=== PATIENT | female | born 1940 | race African-American/Black ===

== ENCOUNTER → 2017-02-10 | Outpatient (CLI) | payer OTHER | LOC: FIMAGING 10:39 | PROVIDERS: ATTEND Internal Medicine | DX: Z12.31 Encounter for screening mammogram for malignant neoplasm of breast (principal) | CPT/HCPCS: G0202 ==

== ENCOUNTER → 2018-01-02 | Outpatient (CLI) | payer OTHER | LOC: BMCIMAGING 10:55 | PROVIDERS: ATTEND Internal Medicine | DX: M54.6 Pain in thoracic spine (principal); R07.9 Chest pain, unspecified; I51.7 Cardiomegaly; R91.8 Other nonspecific abnormal finding of lung field ==

== ENCOUNTER → 2018-02-11 | Outpatient (CLI) | payer OTHER | LOC: FIMAGING 09:37 | PROVIDERS: ATTEND Internal Medicine | DX: Z12.31 Encounter for screening mammogram for malignant neoplasm of breast (principal) ==

== ENCOUNTER → 2018-02-16 | Outpatient (CLI) | payer OTHER | LOC: BHFA 09:00 | PROVIDERS: ATTEND Internal Medicine Cardiovascular Disease | DX: I47.1 Supraventricular tachycardia (principal) ==

== ENCOUNTER → 2018-03-16 | Outpatient (CLI) | payer OTHER | LOC: BHFA 09:30 | PROVIDERS: ATTEND Internal Medicine Cardiovascular Disease | DX: I48.91 Unspecified atrial fibrillation (principal); I48.92 Unspecified atrial flutter | CPT/HCPCS: 78452; 93017; A9500; J2785 ==

== ENCOUNTER → 2018-04-26 | Outpatient (CLI) | payer OTHER | LOC: FIMAGING 09:37 | PROVIDERS: ATTEND Internal Medicine | DX: Z13.820 Encounter for screening for osteoporosis (principal); M85.89 Other specified disorders of bone density and structure, multiple sites; Z78.0 Asymptomatic menopausal state ==

== ENCOUNTER 2018-10-31 13:50 | Inpatient (IN) | payer OTHER ==
[2018-10-31] MEDS ORDERED: methylPREDNISolone SOD SUCC 125 MG/2 ML VIAL IVP ONE (14:00)
[2018-10-31] MEDS ORDERED: IPRATROPIUM/ALBUTEROL 3 ML DEYVIAL IH ONE (14:00)
[2018-10-31] MEDS ORDERED: MAGNESIUM SULF 2 GM/WATER 50 ML IV ONE (14:00)
--- NOTE | 2018-10-31 14:04 | EDPHY ---
H & P Time Seen by Provider: 10/31/18 13:53 HPI/ROS: CHIEF COMPLAINT: Dyspnea HISTORY OF PRESENT ILLNESS: Patient is a 77-year-old female with a history of atrial fibrillation on Eliquis, asthma, COPD and fiber cirrhotic mediastinitis. She is followed by Dr. Luis Jane from pulmonology. She presented to the urgent care today complaining of shortness of breath since Tuesday. No fever. No chest pain. She was 80% on room air for them. She typically wears oxygen only at night. She was given a DuoNeb and felt much better and was saturating 92% on room air by the time EMS arrived. Is they transported her here and on arrival here she is saturating 76% on room air after ambulating to the bathroom. She states that her cough has been productive of grayish yellow sputum. She did get a flu vaccination this year. She denies any history of CHF. Severity: Severe Modifying factors: Improved with albuterol and oxygen REVIEW OF SYSTEMS: Constitutional: denies: chills, fever, recent illness, recent injury EENTM: denies: blurred vision, double vision, nose congestion Respiratory: See HPI Cardiac: denies: chest pain, irregular heart rate, lightheadedness, palpitations Gastrointestinal/Abdominal: denies: abdominal pain, diarrhea, nausea, vomiting, blood streaked stools Genitourinary: denies: dysuria, frequency, hematuria, pain Musculoskeletal: denies: joint pain, muscle pain Skin: denies: lesions, rash, jaundice, bruising Neurological: denies: headache, numbness, paresthesia, tingling, dizziness, weakness Hematologic/Lymphatic: denies: blood clots, easy bleeding, easy bruising Immunologic/allergic: denies: HIV/AIDS, transplant 10 systems reviewed and negative except as noted EXAM: GENERAL: Well-appearing, well-nourished and in no acute distress. HEAD: Atraumatic, normocephalic. EYES: Pupils equal round and reactive to light, extraocular movements intact, sclera anicteric, conjunctiva are normal. ENT: TMs normal, nares patent, oropharynx clear without exudates. Moist mucous membranes. NECK: Normal range of motion, supple without lymphadenopathy or JVD. LUNGS: Bilateral wheezing HEART: Regular rate and rhythm without murmurs, rubs or gallops. ABDOMEN: Soft, nontender, normoactive bowel sounds. No guarding, no rebound. No masses appreciated. BACK: No CVA tenderness, no spinal tenderness, step-offs or deformities EXTREMITIES: Normal range of motion, no pitting or edema. No clubbing or cyanosis. NEUROLOGICAL: Cranial nerves II through XII grossly intact. Normal speech, normal gait. 5/5 strength, normal movement in all extremities, normal sensation , normal reflexes PSYCH: Normal mood, normal affect. SKIN: Warm, dry, normal turgor, no visible rashes or lesions. Source: Patient Exam Limitations: No limitations - Medical/Surgical History Hx Asthma: Yes Hx Chronic Respiratory Disease: Yes Hx Diabetes: No Hx Cardiac Disease: Yes Hx Renal Disease: No Hx Cirrhosis: No Hx Alcoholism: No Hx HIV/AIDS: No Hx Splenectomy or Spleen Trauma: No - Family History Significant Family History: No pertinent family hx - Social History Smoking Status: Former smoker Alcohol Use: None Drug Use: None Constitutional: Initial Vital Signs Temperature (C) 36.8 C 10/31/18 13:57 Heart Rate 83 10/31/18 13:57 Respiratory Rate 20 10/31/18 13:57 Blood Pressure 128/58 H 10/31/18 13:57 O2 Sat (%) 99 10/31/18 13:57 O2 Delivery Mode Nasal Cannula O2 (L/minute) 2 Allergies/Adverse Reactions: No Known Allergies Allergy (Unverified 10/31/18 14:39) Home Medications: Medication Instructions Recorded Albuterol [Proventil Inhaler HFA 1 - 2 puffs IH Q4H PRN 10/31/18 (*)] Albuterol [Proventil Inhaler HFA 2 puffs IH BID 10/31/18 (*)] Apixaban [Eliquis] 5 mg PO BID 10/31/18 Atorvastatin Calcium [Lipitor 10 10 mg PO DAILY18 10/31/18 mg (*)] Chlorthalidone [Chlorthalidone 25 25 mg PO DAILY 10/31/18 mg (*)] Cholecalciferol Vit D3 [Vitamin D3 2,000 units PO DAILY18 10/31/18 2000 units tab (OTC)] Diltiazem HCl [DILTIAZEM ER] 180 mg PO HS 10/31/18 Fluticasone/Salmeter 500/50Mcg 1 puffs IH BID 10/31/18 [Advair 500/50 (*)] Ipratropium/Albuterol [Duoneb (*)] 3 ml IH QID PRN 10/31/18 Loratadine [Claritin 10 mg] 10 mg PO DAILY PRN 10/31/18 Losartan Potassium [Cozaar 50 mg 50 mg PO DAILY 10/31/18 (*)] Potassium Cl [Klor-Con] 20 meq PO BIDMEAL 10/31/18 Tiotropium Inhaler [Spiriva 18 mcg IH DAILY@13 10/31/18 Inhaler] Medical Decision Making - Diagnostics EKG Interpretation: An EKG obtained and was read and documented in trace view. Please see trace view for full reading and report. Sinus rhythm, artifact, no acute ischemic changes visible Imaging: Discussed imaging studies w/ call center analyst Radiologist ED Course/Re-evaluation: 2:40 p.m. Patient appears to have pneumonia on her chest x-ray. Will add antibiotics as well as fluid bolus for an elevated INR. Patient meets criteria for severe sepsis. 2:50 p.m. discussed the case with Dr. Michael who will admit to the medical service. Agrees with antibiotics. Differential Diagnosis: Partial list of the Differential diagnosis considered include but were not limited to; asthma exacerbation, bronchitis,, sepsis and although unlikely based on the history and physical exam, I also considered septic shock, PE, acute coronary disease, CHF. - Data Points Laboratory Results: Laboratory Results 10/31/18 14:15 10/31/18 14:15 Microbiology Results: MICROBIOLOGY 10/31/18 14:15 Nasal, Sinus - Swab Respiratory Panel (PCR) - Final No Organism Detected By Pcr Medications Given: Albuterol/Ipratropium (Duoneb) 3 ml IH QID PRN PRN Reason: Bronchitis/Asthma Stop: 04/29/19 21:03 Last Admin: 11/01/18 04:43 Dose: 3 ml Apixaban (Eliquis) 5 mg PO BID LEONARDO Stop: 04/29/19 21:29 Last Admin: 10/31/18 21:48 Dose: 5 mg Atorvastatin Calcium (Lipitor) 10 mg PO DAILY18 LEONARDO Stop: 04/29/19 21:29 Last Admin: 10/31/18 21:48 Dose: 10 mg Diltiazem HCl (Cardizem Er Q24hr) 180 mg PO HS LEONARDO Stop: 04/29/19 20:59 Last Admin: 10/31/18 23:10 Dose: 180 mg Sodium Chloride (Ns) 1,000 mls @ 50 mls/hr IV CONT LEONARDO Stop: 04/29/19 15:29 Last Admin: 10/31/18 23:32 Dose: 1,000 mls Methylprednisolone Sodium Succinate (Solu-Medrol) 60 mg IVP Q6HRS LEONARDO Stop: 04/29/19 17:59 Last Admin: 11/01/18 05:06 Dose: 60 mg Fluticasone/Salmeterol (Advair) 1 puffs IH BID LEONARDO Stop: 04/30/19 08:59 Last Admin: 10/31/18 22:04 Dose: 1 puffs Discontinued Medications Albuterol/Ipratropium (Duoneb) 3 ml IH EDNOW ONE Stop: 10/31/18 14:01 Last Admin: 10/31/18 14:22 Dose: 3 ml Magnesium Sulfate (Magnesium Sulf 2 Gm (Premix)) 50 mls @ 50 mls/hr IV EDNOW ONE Stop: 10/31/18 14:59 Last Admin: 10/31/18 14:27 Dose: 50 mls Ceftriaxone Sodium/Dextrose (Rocephin 1 Gm (Premix)) 50 mls @ 100 mls/hr IV EDNOW ONE PRN Reason: Protocol Stop: 10/31/18 15:03 Last Admin: 10/31/18 15:36 Dose: 50 mls Sodium Chloride (Ns) 2,100 mls @ 350 mls/hr 30 ml/kg infuse over 6 hr (2100 ml ) IV EDNOW ONE PRN Reason: Protocol Stop: 10/31/18 20:33 Last Admin: 10/31/18 14:43 Dose: 2,100 mls Azithromycin 500 mg/ Dextrose 255 mls @ 255 mls/hr IV EDNOW ONE PRN Reason: Protocol Stop: 10/31/18 15:36 Last Admin: 10/31/18 16:09 Dose: 255 mls Methylprednisolone Sodium Succinate (Solu-Medrol) 125 mg IVP EDNOW ONE Stop: 10/31/18 14:01 Last Admin: 10/31/18 14:23 Dose: 125 mg Departure - Departure Disposition: [facility] Acute Clinical Impression: Severe sepsis Pneumonia Qualifiers: Pneumonia type: due to unspecified organism Laterality: right Lung location: lower lobe of lung Qualified Code(s): J18.1 - Lobar pneumonia, unspecified organism Exacerbation of asthma Qualifiers: Asthma severity: moderate Asthma persistence: unspecified Qualified Code(s): J45.901 - Unspecified asthma with (acute) exacerbation Condition: Fair
[2018-10-31 14:23] LABS: PLATELET COUNT 246 10^3/uL (150-400)
[2018-10-31 14:34] LABS: INR 2.7 (0.83-1.16); PROTIME(PATIENT) 28.6 SEC (12.0-15.0)
[2018-10-31] MEDS ORDERED: NS 2,100 ML IV ONE (14:34)
[2018-10-31] MEDS ORDERED: AZITHROMYCIN IV 500 MG in D5W 250 ML IV ONE (14:37)
--- NOTE | 2018-10-31 14:55 | CPEKG ---
Test Reason : OPEN Blood Pressure : / mmHG Vent. Rate : 080 BPM Atrial Rate : 080 BPM P-R Int : 206 ms QRS Dur : 103 ms QT Int : 388 ms P-R-T Axes : 031 -08 060 degrees QTc Int : 448 ms Sinus rhythm Low voltage, precordial leads Confirmed by Jose Angel Mccabe ([id number]) on 10/31/2018 2:55:27 PM Referred By: Jose Angel Mccabe Confirmed By:Jose Angel Mccabe
--- NOTE | 2018-10-31 15:08 | PDGENHP ---
History and Physical - Chief Complaint Cough and shortness of breath - History of Present Illness Patient is a 77-year-old female with past medical history of AFib on Eliquis, asthma, chronic bronchitis, hypertension, hyperlipidemia who presented to the emergency room with acute worsening of shortness of breath and productive cough. She says at baseline she has a chronic cough that is productive of sputum but starting Tuesday night she started feeling worse with generalized malaise and worsening of her shortness of breath. Her cough became much more productive of green saha yellow sputum. At baseline she uses 2 L of oxygen at night and she has not had to turn that up. She has not had any fevers, chills, chest pain, nausea, vomiting. She has been using in her her inhalers but feels like she is still short of breath and they are not helping much. She denied any increased lower extremity edema, orthopnea or paroxysmal nocturnal dyspnea. History Information - Allergies/Home Medication List Allergies/Adverse Reactions: No Known Allergies Allergy (Unverified 10/31/18 14:39) I have personally reviewed and updated: family history, medical history, social history, surgical history - Past Medical History atrial fibrillation, asthma, COPD, hypertension, hyperlipidemia - Surgical History Reports: no pertinent surgical hx - Family History Positive for: non-pertinent - Social History Smoking Status: Former smoker Alcohol Use: None Drug Use: None Review of Systems Review of Systems: ROS: 10pt was reviewed & negative except for what was stated in HPI & below Physical Exam Physical Exam: Temp Pulse Resp BP Pulse Ox 36.8 C 83 20 128/58 H 99 10/31/18 13:57 10/31/18 13:57 10/31/18 13:57 10/31/18 13:57 10/31/18 13:57 Constitutional: no apparent distress, appears nourished, not in pain Eyes: PERRL, anicteric sclera, EOMI Ears, Nose, Mouth, Throat: moist mucous membranes, hearing normal, ears appear normal, no oral mucosal ulcers Cardiovascular: regular rate and rhythym, no murmur, rub, or gallop, No edema Respiratory: reduced air movement, expiratory wheeze Gastrointestinal: normoactive bowel sounds, soft, non-tender abdomen, no palpable masses Genitourinary: no bladder fullness, no bladder tenderness Skin: warm, normal color, no rashes or abrasions, no fluctuance, no induration, No mottled Musculoskeletal: full muscle strength, no muscle tenderness, normal joint ROM, no joint effusions Psychiatric: interacting appropriately, not anxious, not encephalopathic, thought process linear Lymph, Heme, Immunologic: no cervical LAD, no supraclavicular LAD Lab Data & Imaging Review 10/31/18 14:15 10/31/18 14:15 WBC 9.66 10^3/uL (3.80-9.50) H 10/31/18 14:15 RBC 3.84 10^6/uL (4.18-5.33) L 10/31/18 14:15 Hgb 12.9 g/dL (12.6-16.3) 10/31/18 14:15 Hct 38.8 % (38.0-47.0) 10/31/18 14:15 MCV 101.0 fL (81.5-99.8) H 10/31/18 14:15 MCH 33.6 pg (27.9-34.1) 10/31/18 14:15 MCHC 33.2 g/dL (32.4-36.7) 10/31/18 14:15 RDW 13.7 % (11.5-15.2) 10/31/18 14:15 Plt Count 246 10^3/uL (150-400) 10/31/18 14:15 MPV 9.2 fL (8.7-11.7) 10/31/18 14:15 Neut % (Auto) 81.5 % (39.3-74.2) H 10/31/18 14:15 Lymph % (Auto) 6.2 % (15.0-45.0) L 10/31/18 14:15 [place] % (Auto) 11.5 % (4.5-13.0) 10/31/18 14:15 Eos % (Auto) 0.3 % (0.6-7.6) L 10/31/18 14:15 Baso % (Auto) 0.2 % (0.3-1.7) L 10/31/18 14:15 Nucleat RBC Rel Count 0.0 % (0.0-0.2) 10/31/18 14:15 Absolute Neuts (auto) 7.87 10^3/uL (1.70-6.50) H 10/31/18 14:15 Absolute Lymphs (auto) 0.60 10^3/uL (1.00-3.00) L 10/31/18 14:15 Absolute Monos (auto) 1.11 10^3/uL (0.30-0.80) H 10/31/18 14:15 Absolute Eos (auto) 0.03 10^3/uL (0.03-0.40) 10/31/18 14:15 Absolute Basos (auto) 0.02 10^3/uL (0.02-0.10) 10/31/18 14:15 Absolute Nucleated RBC 0.00 10^3/uL (0-0.01) 10/31/18 14:15 Immature Gran % 0.3 % (0.0-1.1) 10/31/18 14:15 Immature Gran # 0.03 10^3/uL (0.00-0.10) 10/31/18 14:15 PT 28.6 SEC (12.0-15.0) H 10/31/18 14:15 INR 2.70 (0.83-1.16) H 10/31/18 14:15 APTT 48.1 SEC (23.0-38.0) H 10/31/18 14:15 VBG Lactic Acid 0.8 mmol/L (0.7-2.1) 10/31/18 14:42 Sodium 137 mEq/L (135-145) 10/31/18 14:15 Potassium 3.6 mEq/L (3.5-5.2) 10/31/18 14:15 Chloride 101 mEq/L (97-110) 10/31/18 14:15 Carbon Dioxide 25 mEq/l (22-31) 10/31/18 14:15 Anion Gap 11 mEq/L (6-14) 10/31/18 14:15 BUN 14 mg/dL (7-23) 10/31/18 14:15 Creatinine 0.9 mg/dL (0.6-1.0) 10/31/18 14:15 Estimated GFR 60 10/31/18 14:15 Glucose 98 mg/dL (70-100) 10/31/18 14:15 Calcium 9.5 mg/dL (8.5-10.4) 10/31/18 14:15 Total Bilirubin 1.3 mg/dL (0.1-1.4) 10/31/18 14:15 Assessment & Plan Assessment: 77-year-old female with past medical history of asthma, AFib, hypertension, hyperlipidemia admitted with acute on chronic hypoxemic respiratory failure and likely community-acquired pneumonia with asthma/ COPD exacerbation Exacerbation of asthma- patient has very poor air movement increased oxygen requirement and substantial expiratory wheezes on exam. She likely has a COPD exacerbation in the setting of bacterial pneumonia. Discussed the case with the emergency room physician the patient is being and steroids and antibiotics. -continue Solu-Medrol 60 q.6 for now -continue home inhalers including Dulera -treat bacterial pneumonia -oxygen,, duo nebs p.r.n. Pneumonia- she has a leukocytosis with left shift, and chest x-ray with findings concerning for a new right lower lobe pneumonia. No evidence to suggest aspiration. She has been given coverage in the emergency room for community-acquired pneumonia with Rocephin and Zithromax. -continue Rocephin and Zithromax -strep pneumo urinary antigen -Legionella urinary antigen -monitor cultures Atrial fibrillation- on Eliquis and diltiazem. I reviewed the EKG today which shows that she is in a sinus rhythm. No evidence of ischemia. -continue Eliquis -continue diltiazem -monitor on telemetry Hypertension- on diltiazem, losartan, hydrochlorothiazide,, chlorthalidone. Once dose is confirmed will restart these medications. Hyperlipidemia- continue Lipitor Prophylaxis- SCDs, Eliquis Fluids-gentle fluids Electrolytes-within normal limits Nutrition-regular diet Cor-DNR Dispo-observation for acute on chronic hypoxemic respiratory failure, community- acquired pneumonia, asthma/COPD exacerbation
[2018-10-31] MEDS ORDERED: ONDANSETRON DISINTEGRATING 4 MG TAB PO PRN (15:19)
[2018-10-31] MEDS ORDERED: ONDANSETRON 4 MG/2 ML VIAL IVP PRN (15:19)
[2018-10-31] MEDS ORDERED: NS 1,000 ML IV SCH (15:30)
[2018-10-31] MEDS: methylPREDNISolone SOD SUCC 125 MG/2 ML VIAL IVP SCH ×2 (18:12→23:11)
[2018-10-31] MEDS: ATORVASTATIN CALCIUM 10 MG TAB PO SCH (21:48)
[2018-10-31] MEDS: APIXABAN 5 MG TAB PO SCH (21:48)
[2018-10-31] MEDS: IPRATROPIUM/ALBUTEROL 3 ML DEYVIAL IH PRN (22:00)
[2018-10-31] MEDS: FLUTICASONE/SALMETER 500/50MCG DISKUS IH SCH (22:04)
[2018-10-31] MEDS: DILTIAZEM CD 180 MG CAP PO SCH (23:10)
[2018-11-01] MEDS: IPRATROPIUM/ALBUTEROL 3 ML DEYVIAL IH PRN (04:43)
[2018-11-01] MEDS: methylPREDNISolone SOD SUCC 125 MG/2 ML VIAL IVP SCH ×4 (05:06→23:07)
[2018-11-01 05:20] LABS: PLATELET COUNT 247 10^3/uL (150-400)
[2018-11-01] MEDS ORDERED: POTASSIUM CL 20 MEQ TAB PO ONE (06:32)
[2018-11-01] MEDS: LOSARTAN POTASSIUM 50 MG TAB PO SCH (08:46)
[2018-11-01] MEDS: AZITHROMYCIN IV 500 MG in NS 250 ML IV SCH (08:47)
[2018-11-01] MEDS: APIXABAN 5 MG TAB PO SCH ×2 (08:47→20:15)
[2018-11-01] MEDS ORDERED: IPRATROPIUM BROMIDE 0.5 MG/2.5 ML DEYVIAL IH PRN (09:25)
[2018-11-01] MEDS: IPRATROPIUM/ALBUTEROL 3 ML DEYVIAL IH SCH ×4 (10:26→20:25)
[2018-11-01] MEDS: FLUTICASONE/SALMETER 500/50MCG DISKUS IH SCH ×2 (10:26→20:27)
--- NOTE | 2018-11-01 11:34 | ASMTCMCOM ---
CM Note CM Note Notes: Pts case discussed w/ Dr. Abarca. Pt is a 77 y/o female admitted for pneumonia and asthma exacerbation. Therapies have been ordered and awaiting recommendations. Needs are TBD at this time. CM to follow. Plan:TBD Date Signed: 11/01/2018 11:33 AM Electronically Signed By:FLAKO Heaton
[2018-11-01] MEDS: TIOTROPIUM INHALER 18 MCG/DOSE 5 DOSE/MDI IH SCH (13:49)
--- NOTE | 2018-11-01 14:09 | HOSPPROG ---
Hospitalist Progress Note Assessment/Plan: 77-year-old female with past medical history of asthma, AFib, hypertension, hyperlipidemia admitted with acute on chronic hypoxemic respiratory failure and likely community-acquired pneumonia with asthma/ COPD exacerbation Exacerbation of asthma/COPD- patient has very poor air movement increased oxygen requirement and substantial expiratory wheezes on exam. She likely has a COPD exacerbation in the setting of bacterial pneumonia. -continue Solu-Medrol 60 q6 hrs for now, s/p 125 mg IVP in ED -continue home inhalers including Dulera -treat bacterial pneumonia -oxygen,, duo nebs scheduled and prn Pneumonia- she has a leukocytosis with left shift, and chest x-ray with findings concerning for a new right lower lobe pneumonia. No evidence to suggest aspiration. -continue Rocephin and Zithromax (Day 2) -strep pneumo urinary antigen and Legionella urinary antigen pending -monitor blood cultures- NGTD -Resp PCR negative o admission Atrial fibrillation- on Eliquis and diltiazem. I reviewed the EKG today which shows that she is in a sinus rhythm. No evidence of ischemia. -continue home Eliquis -continue home diltiazem -monitor on telemetry Hypertension- on diltiazem, losartan, hydrochlorothiazide,, chlorthalidone. Hyperlipidemia- continue Lipitor Prophylaxis- SCDs, Eliquis Fluids-gentle fluids Electrolytes-within normal limits Nutrition-regular diet Cor-DNR Dispo-Pending clinical course Subjective: Patient reports mildly improved SOB this AM Objective: Vital Signs Temp Pulse Resp BP Pulse Ox 36.4 C 83 16 123/49 H 96 11/01/18 11:42 11/01/18 13:51 11/01/18 13:51 11/01/18 11:42 11/01/18 13:51 Laboratory Results 11/01/18 04:53 11/01/18 04:53 10/31/18 11/01/18 11/02/18 05:59 05:59 05:59 Intake Total 3100 Output Total 1250 Balance 1850 PT 28.6 SEC (12.0-15.0) H 10/31/18 14:15 INR 2.70 (0.83-1.16) H 10/31/18 14:15 - Physical Exam Constitutional: no apparent distress Eyes: PERRL Ears, Nose, Mouth, Throat: moist mucous membranes Cardiovascular: irregularly irregular Respiratory: no respiratory distress, expiratory wheeze Gastrointestinal: soft, non-tender abdomen Skin: warm Musculoskeletal: full muscle strength Neurologic: AAOx3 Psychiatric: interacting appropriately ICD10 Worksheet Patient Problems: Problems Problem Status Onset Exacerbation of asthma Acute Pneumonia Acute Severe sepsis Acute
--- NOTE | 2018-11-01 15:48 | PDMN ---
Medical Necessity Medical necessity: Change to inpt as of 11/01/18 @ 14:11, pt meets inpt criteria per MD order and MCG M-282, Pneumonia, A-2 days. 77 y/o w/PMH of asthma, afib, HTN, and HLD admitted w/acute on chronic hypoxemic resp failure and likely comm acquired PNA w/asthma/COPD exacerbation. Upgraded to inpt for further med nec treatment of PNA including IVF, IV ABX's, IV Solu-Medrol, duo nebs, pt still requiring 2 L O2 during ay (her baseline is 2 L at night). Est LOS>2MN for ongoing management of above.
[2018-11-01] MEDS: ATORVASTATIN CALCIUM 10 MG TAB PO SCH (17:15)
[2018-11-01] MEDS: CANN-EASE 2 GM TUBE TP PRN ×2 (17:58→23:07)
[2018-11-01] MEDS: DILTIAZEM CD 180 MG CAP PO SCH (20:15)
[2018-11-01] MEDS ORDERED: MELATONIN 3 MG TAB PO PRN (22:26)
[2018-11-02] MEDS ORDERED: GUAIFENESIN/DM 10 ML UDCUP PO PRN (00:28)
[2018-11-02] MEDS: BENZONATATE 100 MG CAP PO PRN ×2 (00:50→10:16)
[2018-11-02] MEDS: ALBUTEROL 3 ML DEYVIAL IH PRN (01:13)
[2018-11-02] MEDS ORDERED: LORazepam 0.5 MG TAB PO ONE (03:11)
[2018-11-02] MEDS: IPRATROPIUM/ALBUTEROL 3 ML DEYVIAL IH SCH ×4 (04:10→20:20)
[2018-11-02 05:01] LABS: PLATELET COUNT 288 10^3/uL (150-400)
[2018-11-02] MEDS: methylPREDNISolone SOD SUCC 125 MG/2 ML VIAL IVP SCH ×4 (05:06→23:51)
[2018-11-02] MEDS: guaiFENesin 600 MG TAB.ER PO PRN (05:11)
[2018-11-02] MEDS ORDERED: POTASSIUM CL 20 MEQ TAB PO ONE (05:35)
[2018-11-02] MEDS ORDERED: FUROSEMIDE 20 MG/2 ML VIAL IVP ONE (06:27)
[2018-11-02] MEDS ORDERED: PROTOCOL POTASSIUM 1 DOSE MISC PRN (08:16)
[2018-11-02] MEDS: APIXABAN 5 MG TAB PO SCH ×2 (08:34→20:00)
[2018-11-02] MEDS: LOSARTAN POTASSIUM 50 MG TAB PO SCH (08:34)
[2018-11-02] MEDS: FUROSEMIDE 20 MG/2 ML VIAL IVP SCH ×2 (08:34→14:58)
[2018-11-02] MEDS: AZITHROMYCIN IV 500 MG in NS 250 ML IV SCH (08:34)
--- NOTE | 2018-11-02 09:28 | HOSPPROG ---
Hospitalist Progress Note Assessment/Plan: # acute hypoxic resp failure - multifactorial, possible CHF, pna, COPD exacerbation # pneumonia - psa noted in urine last year - change to cefepime/azith given her tenuous resp status # COPD with acute exacerbation - con solu-medrol, BDs # possible CHF - there certainly may be a component of fluid overload ( cardiomegaly on CXR) - check echo - cont lasix 20 iv bid # paroxysmal a-fib - dilt, eliquis # HLD - lipitor # htn - dilt, cozaar (holding home chlorthalidone while on lasix) Subjective: More short of breath overnight, received Lasix; sitting on commode; dyspnea with minimal exertion; urinating a lot Objective: Vital Signs Temp Pulse Resp BP Pulse Ox 36.6 C 92 18 137/68 H 97 11/02/18 05:19 11/02/18 05:19 11/02/18 05:19 11/02/18 08:34 11/02/18 05:19 Laboratory Results 11/02/18 04:44 11/02/18 04:44 11/01/18 11/02/18 11/03/18 05:59 05:59 05:59 Intake Total 1445 Output Total 1325 Balance 120 PT 28.6 SEC (12.0-15.0) H 10/31/18 14:15 INR 2.70 (0.83-1.16) H 10/31/18 14:15 chart reviewed CXR personally reviewed - Physical Exam Constitutional: uncomfortable Cardiovascular: regular rate and rhythym, no murmur, rub, or gallop Respiratory: expiratory wheeze, inspiratory crackles, respiratory distress (mod) , rhonchi Gastrointestinal: normoactive bowel sounds, soft, non-tender abdomen, no palpable masses ICD10 Worksheet Patient Problems: Problems Problem Status Onset Pneumonia Acute Exacerbation of asthma Acute Severe sepsis Acute
[2018-11-02] MEDS: CEFEPIME HCL 2 GM in NS 100 ML IV SCH ×3 (09:49→23:51)
--- NOTE | 2018-11-02 10:32 | ECHO ---
[email or web address] [address] [address] Main: [phone] Fax: Transthoracic Echocardiogram Name: RENE PATEL MR#: [id number] Study Date: 11/02/2018 Study Time: 08:49 AM Date of : 1940 Age: 77 year(s) Height: 160 cm (63 in.) Weight: 74.39 kg (164 lb.) BSA: 1.78 m2 Gender: Female Examination: Echo Indication: CHF? Image Quality: Adequate Contrast: Requested by: Anthony Ayala BP: 137 mmHg/68 mmHg Heart Rate: Rhythm: Indication: CHF? Procedure Staff Sailmaker: Mansi Vivar [facility] Reading Physician: Belgica Escalera MD Requesting Provider: Conclusions: Normal size left ventricle. Mild concentric LV hypertrophy. Normal global systolic LV function. EF is 67 %. No regional wall motion abnormality. Normal diastolic LV function. Normal size right ventricle. Normal RV function. The left atrium is normal in size. Mild to moderate mitral regurgitation. Mild tricuspid regurgitation is present. Right ventricular systolic pressure measures 70mmHg. Mildly dilated ascending aorta measuring 3.8 cm. Trivial pericardial effusion. Compared with 03/28/2018 RVSP is higher (previously 57 mmHg). Measurements: Chambers Valvular Assessment AV/MV Valvular Assessment TV/PV Normal Normal Normal Name Value Range Name Value Range Name Value Range Ao Areli (2D): 3.3 cm (1.4 cm-2.6 AV Vmax: 1.50 m/s (1 m/s-1.7 TR Vmax: 4.02 mm/s ( - ) cm) m/s) TR PGmax: 65 mmHg ( - ) IVSd (2D): 1.1 cm (0.6 cm-1.1 AV maxP mmHg ( - ) syst. PAP: 70 mmHg ( - ) cm) AV meanP mmHg ( - ) PV Vmax: 0.80 m/s (0.6 m/s-0.9 LVDd (2D): 5.0 cm (3.9 cm-5.3 RYAN (VTI): 2.6 cm ( - ) m/s) cm) MV E Vmax: 1.16 m/s ( - ) PV PGmax: 3 mmHg ( - ) LVDs (2D): 3.4 cm (2.1 cm-4 MV A Vmax: 0.98 m/s ( - ) cm) MV E/A: 1.18 ( - ) LVPWd (2D): 1.0 cm ( - ) MV PHT: 0.058 s ( - ) LVOTd 2.0 cm 2.0 cm mm MVA (PHT): 3.8 s ( - ) Patient: RENE PATEL Study Date: 11/02/2018 Page 1 of 2 08:49 AM LVEF (BP): 67 % (>=55 %) RVDd(2D): 3.0 cm (1.9 cm-3.8 cmmm) Continued Measurements: Chambers Valvular Assessment AV/MV Valvular Assessment TV/PV Name Value Name Value Name Value LADs: 3.6 cm MV DecTime: 194 m/s CVP (est.): 5 mmHg LADs Lon.4 cm MV E' Septal: 0.12 m/s LA Area: 17.9 cm2 MV E/E' Septal: 9.70 LA Volume: 59 ml MV E/E' Lateral: 10.90 LA Volume Index: 33.1 ml/m2 RA Area: 16.3 cm2 Additional Vessels Name Value Ao Ascendin.8 cm Findings: Left Ventricle: Normal size left ventricle. Mild concentric LV hypertrophy. Normal global systolic LV function. EF is 67 %. No regional wall motion abnormality. Normal diastolic LV function. Right Ventricle: Normal size right ventricle. Normal RV function. Left Atrium: The left atrium is normal in size. Right Atrium: The right atrium is normal in size. Mitral Valve: The mitral valve is normal in appearance and function. Mild to moderate mitral regurgitation. No mitral stenosis is present. Aortic Valve: The aortic valve is tri-leaflet. There is no aortic valve regurgitation. No aortic valve stenosis is present. Tricuspid Valve: The tricuspid valve is normal in appearance and function. Mild tricuspid regurgitation is present. The pulmonary artery pressure is severely increased. Right ventricular systolic pressure measures 70mmHg. Pulmonic Valve: The pulmonic valve is normal in appearance and function. Aorta: The aorta is normal. Normal size aortic root measuring 3.3 cm. Mildly dilated ascending aorta measuring 3.8 cm. Pericardium: Trivial pericardial effusion. There is pericardial fat. Exam Comments: (No Signature Object) Patient: RENE PATEL Study Date: 11/02/2018 Page 2 of 2 08:49 AM [id number]
[2018-11-02] MEDS: FLUTICASONE/SALMETER 500/50MCG DISKUS IH SCH ×2 (11:08→20:20)
--- NOTE | 2018-11-02 12:28 | ASMTCMCOM ---
CM Note CM Note Notes: Pts case discussed w/ Casandra Cespedes NP. Therapies are recommending HC. CM met w/ pt for dispo planning. She is agreeable to having [facility] services. Referral sent and they are able to accept. CM confirmed pts address and phone number. Pts PCP is Dr. Kerr. Pt is requesting Meals On Wheels set up for 5 days. CM will assist in doing that once a d/c date is identified. Pt does not have any food restrictions. CM to follow. Plan: [facility], PT, OT Date Signed: 11/02/2018 12:27 PM Electronically Signed By:FLAKO Heaton
[2018-11-02] MEDS: TIOTROPIUM INHALER 18 MCG/DOSE 5 DOSE/MDI IH SCH (13:59)
[2018-11-02] MEDS: ATORVASTATIN CALCIUM 10 MG TAB PO SCH (17:06)
[2018-11-02] MEDS ORDERED: POTASSIUM CL 10 MEQ TAB PO ONE (19:23)
[2018-11-02] MEDS: POTASSIUM CL 20 MEQ/15 ML UDCUP PO ONE ×2 (20:01→20:34)
[2018-11-02] MEDS: DILTIAZEM CD 180 MG CAP PO SCH (20:01)
[2018-11-02] MEDS: MELATONIN 3 MG TAB PO PRN (20:39)
[2018-11-03] MEDS: LORazepam 0.5 MG TAB PO PRN (01:14)
[2018-11-03] MEDS: guaiFENesin 600 MG TAB.ER PO PRN (01:17)
[2018-11-03] MEDS: ALBUTEROL 3 ML DEYVIAL IH PRN (01:49)
[2018-11-03] MEDS: methylPREDNISolone SOD SUCC 125 MG/2 ML VIAL IVP SCH ×4 (05:43→23:55)
[2018-11-03] MEDS: IPRATROPIUM/ALBUTEROL 3 ML DEYVIAL IH SCH ×4 (05:52→21:19)
[2018-11-03] MEDS: FLUTICASONE/SALMETER 500/50MCG DISKUS IH SCH ×2 (05:53→21:24)
[2018-11-03] MEDS: CEFEPIME HCL 2 GM in NS 100 ML IV SCH ×3 (08:07→23:55)
[2018-11-03] MEDS ORDERED: POTASSIUM CL 10 MEQ TAB PO ONE ×2 (09:00→21:00)
[2018-11-03] MEDS: AZITHROMYCIN IV 500 MG in NS 250 ML IV SCH (09:00)
[2018-11-03] MEDS: FUROSEMIDE 20 MG/2 ML VIAL IVP SCH ×2 (09:03→14:51)
[2018-11-03] MEDS: LOSARTAN POTASSIUM 50 MG TAB PO SCH (09:11)
[2018-11-03] MEDS: APIXABAN 5 MG TAB PO SCH ×2 (09:12→21:00)
[2018-11-03] MEDS: TIOTROPIUM INHALER 18 MCG/DOSE 5 DOSE/MDI IH SCH (13:15)
--- NOTE | 2018-11-03 13:18 | HOSPPROG ---
Hospitalist Progress Note Assessment/Plan: # acute hypoxic resp failure - baseline 2L at night - multifactorial, possible CHF, pna, COPD exacerbation # pneumonia - psa noted in urine last year - change to cefepime given her tenuous resp status - dc azith today # COPD with acute exacerbation - con solu-medrol, BDs - increase mucinex; add flutter valve # possible CHF - there certainly may be a component of fluid overload; echo ok - cont lasix 20 iv bid # paroxysmal a-fib - dilt, eliquis # HLD - lipitor # htn - dilt, cozaar (holding home chlorthalidone while on lasix) Subjective: feels slightly less SOB today; unable to fully clear mucous Objective: Vital Signs Temp Pulse Resp BP Pulse Ox 36.4 C 87 20 134/71 H 94 11/03/18 12:11 11/03/18 12:00 11/03/18 12:00 11/03/18 12:00 11/03/18 12:00 Laboratory Results 11/02/18 04:44 11/03/18 04:45 11/02/18 11/03/18 11/04/18 05:59 05:59 05:59 Intake Total 1445 350 Output Total 1325 3000 300 Balance 120 -2650 -300 PT 28.6 SEC (12.0-15.0) H 10/31/18 14:15 INR 2.70 (0.83-1.16) H 10/31/18 14:15 CXR personally reviewed - Physical Exam Constitutional: uncomfortable Cardiovascular: regular rate and rhythym, no murmur, rub, or gallop Respiratory: respiratory distress (mild), other (diffuse whonchi and wheezes), No bronchial breath sounds Gastrointestinal: soft, non-tender abdomen, no palpable masses, No guarding, No rebound ICD10 Worksheet Patient Problems: Problems Problem Status Onset Pneumonia Acute Exacerbation of asthma Acute Severe sepsis Acute
--- NOTE | 2018-11-03 16:30 | ASMTCMCOM ---
CM Note CM Note Notes: CM spoke to Dr. Ayala about this case. Pt will most likely be here for another day or two. CM arranged for pt to start receiving [employer] Whe[employer] on Tuesday. That was the soonest availability they had. CM updated [facility]. CM to follow. Plan: [facility]; PT, OT Date Signed: 11/03/2018 04:30 PM Electronically Signed By:FLAKO Heaton
[2018-11-03] MEDS: ATORVASTATIN CALCIUM 10 MG TAB PO SCH (17:14)
[2018-11-03] MEDS: guaiFENesin 600 MG TAB.ER PO SCH (21:00)
[2018-11-03] MEDS: DILTIAZEM CD 180 MG CAP PO SCH (21:00)
[2018-11-04] MEDS: ALBUTEROL 3 ML DEYVIAL IH PRN ×2 (00:50→09:50)
[2018-11-04] MEDS: LORazepam 0.5 MG TAB PO PRN (01:06)
[2018-11-04] MEDS: IPRATROPIUM/ALBUTEROL 3 ML DEYVIAL IH SCH ×4 (04:52→21:16)
[2018-11-04] MEDS: methylPREDNISolone SOD SUCC 125 MG/2 ML VIAL IVP SCH ×3 (04:57→17:18)
[2018-11-04 05:22] LABS: PLATELET COUNT 265 10^3/uL (150-400)
[2018-11-04] MEDS: CEFEPIME HCL 2 GM in NS 100 ML IV SCH ×3 (08:02→16:04)
[2018-11-04] MEDS: guaiFENesin 600 MG TAB.ER PO SCH ×2 (08:52→20:04)
[2018-11-04] MEDS: APIXABAN 5 MG TAB PO SCH ×2 (08:53→20:04)
[2018-11-04] MEDS: LOSARTAN POTASSIUM 50 MG TAB PO SCH (08:53)
[2018-11-04] MEDS: FLUTICASONE/SALMETER 500/50MCG DISKUS IH SCH ×2 (10:03→21:16)
[2018-11-04] MEDS ORDERED: POTASSIUM CL 10 MEQ TAB PO ONE ×2 (10:34→19:27)
[2018-11-04] MEDS: TIOTROPIUM INHALER 18 MCG/DOSE 5 DOSE/MDI IH SCH (11:52)
[2018-11-04] MEDS ORDERED: LORazepam 0.5 MG TAB PO PRN (13:56)
--- NOTE | 2018-11-04 14:03 | HOSPPROG ---
Hospitalist Progress Note Assessment/Plan: # acute hypoxic resp failure - baseline 2L at night; anticoagulated at baseline - multifactorial, possible CHF, pna, COPD exacerbation - check CT today for better characterization of pulm process # pneumonia - psa noted in urine last year -cont cefepime - s/p course of azith # COPD with acute exacerbation - con solu-medrol, BDs - increase mucinex; add flutter valve # possible CHF - there certainly may be a component of fluid overload; echo ok - will hold lasix today # hypoNa - suspect SIADH - check ulytes - fluid restrict # paroxysmal a-fib - dilt, eliquis # HLD - lipitor # htn - dilt, cozaar (holding home chlorthalidone while on lasix) # COR - DNR Subjective: still does not feel well; still SOB; difficulty clearing mucous Objective: Vital Signs Temp Pulse Resp BP Pulse Ox 36.3 C 83 18 134/81 H 92 11/04/18 13:15 11/04/18 13:15 11/04/18 13:15 11/04/18 13:15 11/04/18 13:15 Laboratory Results 11/04/18 04:42 11/04/18 04:42 11/03/18 11/04/18 11/05/18 05:59 05:59 05:59 Intake Total 350 525 Output Total 3000 1500 Balance -2650 -975 PT 28.6 SEC (12.0-15.0) H 10/31/18 14:15 INR 2.70 (0.83-1.16) H 10/31/18 14:15 high risk with ongoing resp compromise - Physical Exam Constitutional: uncomfortable, other (tired) Cardiovascular: regular rate and rhythym, no murmur, rub, or gallop Respiratory: expiratory wheeze, inspiratory crackles, respiratory distress (mild ), rhonchi Gastrointestinal: normoactive bowel sounds, soft, non-tender abdomen, no palpable masses ICD10 Worksheet Patient Problems: Problems Problem Status Onset Pneumonia Acute Exacerbation of asthma Acute Severe sepsis Acute
[2018-11-04] MEDS: ATORVASTATIN CALCIUM 10 MG TAB PO SCH (17:18)
[2018-11-04] MEDS ORDERED: IOPAMIDOL (ISOVUE-300) 100 ML BTL ONE (18:18)
[2018-11-04] MEDS: BENZONATATE 100 MG CAP PO PRN (18:28)
[2018-11-04] MEDS: ACETAMINOPHEN 325 MG TAB PO PRN (18:28)
[2018-11-04] MEDS: DILTIAZEM CD 180 MG CAP PO SCH (20:04)
[2018-11-05] MEDS: methylPREDNISolone SOD SUCC 125 MG/2 ML VIAL IVP SCH ×4 (00:27→21:54)
[2018-11-05] MEDS: BENZONATATE 100 MG CAP PO PRN ×2 (00:30→10:23)
[2018-11-05 04:59] LABS: PLATELET COUNT 287 10^3/uL (150-400)
[2018-11-05] MEDS ORDERED: NS 1,000 ML IV SCH (05:30)
[2018-11-05] MEDS: IPRATROPIUM/ALBUTEROL 3 ML DEYVIAL IH SCH ×4 (06:15→21:23)
[2018-11-05] MEDS: CEFEPIME HCL 2 GM in NS 100 ML IV SCH ×2 (06:31→16:04)
[2018-11-05] MEDS ORDERED: POTASSIUM CL 10 MEQ TAB PO ONE ×2 (07:46→22:49)
[2018-11-05] MEDS: guaiFENesin 600 MG TAB.ER PO SCH ×2 (09:23→21:53)
[2018-11-05] MEDS: LOSARTAN POTASSIUM 50 MG TAB PO SCH (09:23)
[2018-11-05] MEDS: APIXABAN 5 MG TAB PO SCH ×2 (09:23→21:53)
[2018-11-05] MEDS: FLUTICASONE/SALMETER 500/50MCG DISKUS IH SCH ×2 (09:46→21:24)
[2018-11-05] MEDS: ALBUTEROL 3 ML DEYVIAL IH PRN (09:46)
[2018-11-05] MEDS: TIOTROPIUM INHALER 18 MCG/DOSE 5 DOSE/MDI IH SCH (12:06)
[2018-11-05] MEDS: ACETAMINOPHEN 325 MG TAB PO PRN (12:23)
[2018-11-05] MEDS: traMADol 50 MG TAB PO PRN ×2 (14:16→21:56)
--- NOTE | 2018-11-05 14:26 | HOSPPROG ---
Hospitalist Progress Note Assessment/Plan: # acute hypoxic resp failure - baseline 2L at night; anticoagulated at baseline - multifactorial, possible CHF, pna, COPD exacerbation # pneumonia, diffuse and R sided - psa noted in urine last year - - with possible pseudomonas will continue cefepime - s/p course of azith - check legionella ag - check swallow study - will add tramadol to try to allow her to expectorate her sputum better # COPD with acute exacerbation - cont solu-medrol (decrease dose today), BDs - cont mucinex, flutter valve # possible CHF - doubt at this point # hypoNa - ULytes c/w hypovolemia - NS bolus; stop fluid restriction # paroxysmal a-fib - dilt, eliquis # HLD - lipitor # htn - dilt, cozaar (holding home chlorthalidone while on lasix) # COR - DNR Subjective: overall feels better today; still not able to cough up sputum Objective: Vital Signs Temp Pulse Resp BP Pulse Ox 36.4 C 88 16 139/73 H 93 11/05/18 11:54 11/05/18 12:06 11/05/18 12:06 11/05/18 11:54 11/05/18 12:06 Laboratory Results 11/05/18 04:20 11/05/18 04:20 11/04/18 11/05/18 11/06/18 05:59 05:59 05:59 Intake Total 525 1900 Output Total 1500 1600 200 Balance -975 300 -200 PT 28.6 SEC (12.0-15.0) H 10/31/18 14:15 INR 2.70 (0.83-1.16) H 10/31/18 14:15 CT personally reviewed discussed with dr burch - Physical Exam Constitutional: uncomfortable Cardiovascular: regular rate and rhythym, no murmur, rub, or gallop Respiratory: no respiratory distress, other (R sided rhonchi and rales; fewer wheezes than yesterday) ICD10 Worksheet Patient Problems: Problems Problem Status Onset Pneumonia Acute Exacerbation of asthma Acute Severe sepsis Acute
[2018-11-05] MEDS: CANN-EASE 2 GM TUBE TP PRN (14:29)
[2018-11-05] MEDS: ATORVASTATIN CALCIUM 10 MG TAB PO SCH (17:59)
[2018-11-05] MEDS: ACETAMINOPHEN 500 MG TAB PO SCH (21:52)
[2018-11-05] MEDS: DILTIAZEM CD 180 MG CAP PO SCH (21:53)
[2018-11-06] MEDS: ACETAMINOPHEN 500 MG TAB PO SCH ×3 (05:05→21:39)
[2018-11-06] MEDS: methylPREDNISolone SOD SUCC 125 MG/2 ML VIAL IVP SCH ×3 (05:06→21:39)
[2018-11-06] MEDS: CEFEPIME HCL 2 GM in NS 100 ML IV SCH ×2 (05:06→17:13)
[2018-11-06] MEDS: IPRATROPIUM/ALBUTEROL 3 ML DEYVIAL IH SCH ×4 (05:19→21:49)
[2018-11-06 05:24] LABS: PLATELET COUNT 281 10^3/uL (150-400)
[2018-11-06] MEDS: APIXABAN 5 MG TAB PO SCH ×2 (08:26→21:39)
[2018-11-06] MEDS: guaiFENesin 600 MG TAB.ER PO SCH ×2 (08:26→21:39)
[2018-11-06] MEDS: LOSARTAN POTASSIUM 50 MG TAB PO SCH (08:26)
[2018-11-06] MEDS ORDERED: POTASSIUM CL 10 MEQ TAB PO ONE ×2 (08:47→21:17)
[2018-11-06] MEDS: FLUTICASONE/SALMETER 500/50MCG DISKUS IH SCH ×2 (11:12→21:49)
[2018-11-06] MEDS: TIOTROPIUM INHALER 18 MCG/DOSE 5 DOSE/MDI IH SCH ×2 (11:13→16:28)
--- NOTE | 2018-11-06 15:11 | ASMTCMCOM ---
CM Note CM Note Notes: Pts case discussed w/ Dr. Ayala and Marlin RN. Pt is not medically stable to d/c at this time. CM left a msg for [employer] to reschedule delivery to start on . CM to follow. Plan: [facility]; PT, OT w/ 5 free [employer] Date Signed: 11/06/2018 03:10 PM Electronically Signed By:FLAKO Heaton
--- NOTE | 2018-11-06 15:44 | HOSPPROG ---
Hospitalist Progress Note Assessment/Plan: # acute hypoxic resp failure - baseline 2L at night; anticoagulated at baseline - slow improvement - multifactorial, possible CHF, pna, COPD exacerbation # pneumonia, diffuse and R sided - improving - psa noted in urine last year - with possible pseudomonas will continue cefepime - s/p course of azith - check swallow study - will add tramadol to try to allow her to expectorate her sputum better # COPD with acute exacerbation - cont solu-medrol (decrease dose yesterday), BDs - cont mucinex, flutter valve # possible CHF - doubt at this point # hypoNa - ULytes c/w hypovolemia - better after NS yesterday; follow allowing her to hydrate herself # paroxysmal a-fib - dilt, eliquis # HLD - lipitor # htn - dilt, cozaar (holding home chlorthalidone while on lasix) # COR - DNR Subjective: still about the same - SOB and energy improving Objective: Vital Signs Temp Pulse Resp BP Pulse Ox 36.3 C 96 18 127/60 H 96 11/06/18 11:44 11/06/18 11:44 11/06/18 11:44 11/06/18 11:44 11/06/18 11:44 Laboratory Results 11/06/18 05:01 11/06/18 05:01 11/05/18 11/06/18 11/07/18 05:59 05:59 05:59 Intake Total 1900 400 Output Total 1600 1000 700 Balance 300 -600 -700 PT 28.6 SEC (12.0-15.0) H 10/31/18 14:15 INR 2.70 (0.83-1.16) H 10/31/18 14:15 swallow study reviewed - Physical Exam Constitutional: uncomfortable Cardiovascular: regular rate and rhythym, no murmur, rub, or gallop Respiratory: respiratory distress (mild), No expiratory wheeze, No inspiratory crackles, No rhonchi Gastrointestinal: soft, non-tender abdomen, no palpable masses, No guarding, No rebound ICD10 Worksheet Patient Problems: Problems Problem Status Onset Pneumonia Acute Exacerbation of asthma Acute Severe sepsis Acute
[2018-11-06] MEDS: ATORVASTATIN CALCIUM 10 MG TAB PO SCH (17:13)
--- NOTE | 2018-11-06 17:53 | GCON ---
[f rep st] CONSULTATION PULMONARY CONSULTATION DATE OF CONSULTATION: 11/06/2018 REASON FOR CONSULTATION: Pneumonia, asthma, fibrosing mediastinitis. HISTORY: The patient is a very pleasant 77-year-old who I have followed for many years in the office for asthma. In general, her asthma has been stable. She has most recently been treated with Advair 500/50 and as needed albuterol by metered-dose inhaler or DuoNeb. She is also on Spiriva and uses o xygen at night. 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 The ratio was normal at 78% and there was no change to bronch odilator at that time. She has other medical problems, including recently diagnosed paroxysmal atrial fibrillation. She is anticoagulated with Eliquis. She presented to the emergency department after being seen by [facility] on 11/01 with increased shortness of breath, productive purulent cough, and increas ed wheezing. She was found to have a fairly extensive right-sided pneumonia. She was admitted and h as been treated with antibiotics, bronchodilator therapies, steroids, with gradual improvement. CT s can of the chest was done on 11/04, showing persistent infiltrate throughout the right lung. She has had a video swallow, which is negative for evidence of aspiration. She had no episode of vomiting o r other issues potentially leading to aspiration prior to her admission. She feels she is getting be tter. Steroids are being reduced. She remains on intravenous cefepime. Prior to admission, she had a full course of azithromycin. PAST MEDICAL HISTORY: Remarkable for the issues as outlined in the HPI. This includes restrictive d isease, secondary to inactive fibrosing mediastinitis; systemic hypertension; paroxysmal atrial fibri llation on oral diltiazem and anticoagulation; hypokalemia, secondary to thiazide diuretic therapy; a nd allergies. DRUG ALLERGIES: No known drug allergies. SOCIAL HISTORY: The patient did smoke cigarettes minimally in the past; however, she has no history of COPD. Alcohol is denied. She lives alone. She has family in the area. FAMILY HISTORY: Negative/noncontributory. REVIEW OF SYSTEMS: Ten-point review of systems is negative, except as outlined in the HPI. PHYSICAL EXAMINATION: GENERAL: Reveals a pleasant woman who appears somewhat tired. VITAL SIGNS: Blood pressure is 130/65, heart rate 85 and regular. Oxygen is in place at 2 L, saturations are in t he mid low 90s. She is afebrile. HEENT: Unremarkable for lymphadenopathy or thyromegaly. There is no jugular venous distention. CHEST: Shows fairly good breath sounds and excursions bilaterally. There are few expiratory wheezes. No rhonchi. A few scattered nonspecific rales. With cough, there is little in the way of central pulmonary congestion. HEART: Regular in rate and rhythm. A soft s ystolic murmur is present. There are no gallops. ABDOMEN: Soft, nontender. Bowel sounds are prese nt. EXTREMITIES: Remarkable for trace/plus peripheral edema bilaterally. NEUROLOGIC: Examination is intact. LABORATORY/IMAGING: CT scan of the chest is as outlined above. Findings, include the impressive rig ht-sided pneumonia involving the upper lobe, lower lobe. Right perihilar calcified mass lesion is pr esent and unchanged compared to previous CT scans from 5 years ago. The heart is somewhat enlarged. White blood cell count is 12,100, hematocrit 31, platelets 281,000. INR on admission was 2.7, PTT 48 . Venous lactate was negative on admission. Sodium is 132, potassium 3.8, BUN 21 with creatinine 0. 9,glucose 119. Urine Legionella and Streptococcus pneumoniae were both negative. Respiratory panel was negative. Blood cultures are negative to date. . ASSESSMENT: 1. Right-sided pneumonia. This appears to be a community-acquired pneumonia. She was treated with azithromycin initially and now with cefepime. The pneumonia did result in a significant exacerbation of her underlying asthma. This has considerably improved. 2. Asthma. As noted above. 3. 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 This is not an active process. 4. History of atrial fibrillation, on anticoagulation. 5. Metabolic: Mild hyponatremia, hypokalemia. PLAN AND RECOMMENDATIONS: The patient will need hospitalization for another several days. [facility]. She can likely be changed over to oral predniso ne tomorrow from the current intravenous Solu-Medrol. Antibiotics will be continued. On discharge, I would recommend continuing antibiotics for a total of 10 days from her initial antibiotic dose intr avenously on this admission. Bronchodilator therapies should be continued. Further plans and recommendations will be made based on her progress over the next 12 to 24 hours. /[id number]/MODL
[2018-11-06] MEDS ORDERED: POTASSIUM CL 10 MEQ TAB ONE (21:20)
[2018-11-06] MEDS: DILTIAZEM CD 180 MG CAP PO SCH (21:41)
[2018-11-07] MEDS: methylPREDNISolone SOD SUCC 125 MG/2 ML VIAL IVP SCH (05:22)
[2018-11-07] MEDS: CEFEPIME HCL 2 GM in NS 100 ML IV SCH ×2 (05:22→17:55)
[2018-11-07] MEDS: ACETAMINOPHEN 500 MG TAB PO SCH ×3 (05:22→22:07)
[2018-11-07] MEDS: IPRATROPIUM/ALBUTEROL 3 ML DEYVIAL IH SCH ×4 (05:35→21:19)
[2018-11-07] MEDS: APIXABAN 5 MG TAB PO SCH ×2 (08:37→22:08)
[2018-11-07] MEDS: guaiFENesin 600 MG TAB.ER PO SCH ×2 (08:37→22:07)
[2018-11-07] MEDS: LOSARTAN POTASSIUM 50 MG TAB PO SCH (08:37)
[2018-11-07] MEDS: FLUTICASONE/SALMETER 500/50MCG DISKUS IH SCH ×2 (08:51→21:18)
--- NOTE | 2018-11-07 12:19 | HOSPPROG ---
Hospitalist Progress Note Assessment/Plan: 77 yo F w pneumonia acute hypoxic resp failure - baseline 2L at night; anticoagulated at baseline - slow improvement - multifactorial, possible CHF, pna, COPD exacerbation pneumonia, diffuse and R sided - improving - psa noted in urine last year - with possible pseudomonas will continue cefepime - s/p course of azith - check swallow study - will add tramadol to try to allow her to expectorate her sputum better COPD with acute exacerbation - transfer to [facility] today - cont mucinex, flutter valve possible CHF - doubt at this point hypoNa - ULytes c/w hypovolemia - better after NS yesterday; follow allowing her to hydrate herself paroxysmal a-fib - dilt, eliquis HLD - lipitor htn - dilt, cozaar (holding home chlorthalidone while on lasix) # COR - DNR dispo: interested in SNF Subjective: case d/w dr diaz Objective: Vital Signs Temp Pulse Resp BP Pulse Ox 36.8 C 86 18 137/56 H 96 11/07/18 08:00 11/07/18 10:24 11/07/18 10:24 11/07/18 08:00 11/07/18 10:24 Laboratory Results 11/06/18 05:01 11/07/18 04:35 11/06/18 11/07/18 11/08/18 05:59 05:59 05:59 Intake Total 400 1400 Output Total 1000 1800 300 Balance -600 -400 -300 PT 28.6 SEC (12.0-15.0) H 10/31/18 14:15 INR 2.70 (0.83-1.16) H 10/31/18 14:15 - Physical Exam Constitutional: no apparent distress, appears nourished Eyes: PERRL, anicteric sclera Ears, Nose, Mouth, Throat: moist mucous membranes, hearing normal Cardiovascular: regular rate and rhythym, no murmur, rub, or gallop Respiratory: expiratory wheeze, rhonchi, No no rales or rhonchi Gastrointestinal: normoactive bowel sounds, soft, non-tender abdomen Genitourinary: No messina in urethra Skin: warm, normal color Musculoskeletal: No full muscle strength Neurologic: AAOx3 ICD10 Worksheet Patient Problems: Problems Problem Status Onset Exacerbation of asthma Acute Pneumonia Acute Severe sepsis Acute
[2018-11-07] MEDS: predniSONE 20 MG TAB PO SCH (14:15)
[2018-11-07] MEDS: TIOTROPIUM INHALER 18 MCG/DOSE 5 DOSE/MDI IH SCH (15:01)
--- NOTE | 2018-11-07 16:29 | ASMTCMCOM ---
CM Note CM Note Notes: Pt now wants to discharge to [facility] and they have accepted, pending insurance authorization. Per hospitalist, pt needs another night to be medically stable for discharge. Pt and daughter aware. D/c Plan: [facility] pending insurance authorization. Date Signed: 11/07/2018 04:28 PM Electronically Signed By:Nadiya Christensen
--- NOTE | 2018-11-07 17:40 | SOAPPROG ---
SOAP Progress Note Assessment/Plan: Assessment: Right-sided pneumonia, diffuse. Day 8 of antibiotics. Doing well, clinically much improved. History of asthma History restrictive disease secondary to a fibrosing mediastinitis, not active Plan: Continue present care. Continue bronchodilator therapy, prednisone on discharge with taper. Continue antibiotics for now for a total of 10 days. Probable discharge tomorrow to SNF. Check two view x-ray prior to discharge. Subjective: Feels better. Breathing okay. No chest pain. Not bringing up any mucus. On oxygen 2 L at rest, 4 with exertion. Worried about rehab placement. Objective: Vital Signs Temp Pulse Resp BP Pulse Ox 36.8 C 88 18 113/53 L 95 11/07/18 16:00 11/07/18 16:00 11/07/18 16:00 11/07/18 16:00 11/07/18 16:00 Laboratory Results 11/06/18 05:01 11/07/18 04:35 11/06/18 11/07/18 11/08/18 05:59 05:59 05:59 Intake Total 400 1400 Output Total 1000 1800 300 Balance -600 -400 -300 PT 28.6 SEC (12.0-15.0) H 10/31/18 14:15 INR 2.70 (0.83-1.16) H 10/31/18 14:15 Physical Exam - Physical Exam General Appearance: alert, no apparent distress EENT: other (Nasal cannula in place at 2 L) Neck: normal inspection Respiratory: decreased breath sounds, rales (More prominent on the right, few at the left base), other (Eat a changes on the right persist), No rhonchi, No wheezing Cardiac/Chest: regular rate, rhythm, No gallop Abdomen: normal bowel sounds, non-tender, soft Skin: warm/dry Extremities: pedal edema (1+ bilaterally) Neuro/Psych: no motor/sensory deficits, No cognition abnormalities ICD10 Worksheet Patient Problems: Problems Problem Status Onset Pneumonia Acute Exacerbation of asthma Acute Severe sepsis Acute
[2018-11-07] MEDS: ATORVASTATIN CALCIUM 10 MG TAB PO SCH (17:55)
[2018-11-07] MEDS ORDERED: POTASSIUM CL 10 MEQ TAB PO ONE (20:09)
[2018-11-07] MEDS: DILTIAZEM CD 180 MG CAP PO SCH (22:08)
[2018-11-08] MEDS: BENZONATATE 100 MG CAP PO PRN (02:25)
[2018-11-08] MEDS: traMADol 50 MG TAB PO PRN (02:25)
[2018-11-08] MEDS: IPRATROPIUM/ALBUTEROL 3 ML DEYVIAL IH SCH ×4 (05:48→21:31)
[2018-11-08] MEDS: ACETAMINOPHEN 500 MG TAB PO SCH ×3 (06:04→22:07)
[2018-11-08] MEDS: LOSARTAN POTASSIUM 50 MG TAB PO SCH (07:56)
[2018-11-08] MEDS: guaiFENesin 600 MG TAB.ER PO SCH ×2 (07:56→22:06)
[2018-11-08] MEDS: APIXABAN 5 MG TAB PO SCH ×2 (07:56→22:07)
[2018-11-08] MEDS: predniSONE 20 MG TAB PO SCH (07:56)
[2018-11-08] MEDS: CEFEPIME HCL 2 GM in NS 100 ML IV SCH ×2 (07:59→09:33)
[2018-11-08] MEDS: FLUTICASONE/SALMETER 500/50MCG DISKUS IH SCH ×2 (10:10→21:34)
--- NOTE | 2018-11-08 12:36 | HOSPPROG ---
Hospitalist Progress Note Assessment/Plan: 77 yo F w pneumonia acute hypoxic resp failure - baseline 2L at night; anticoagulated at baseline - slow improvement - multifactorial, possible CHF, pna, COPD exacerbation pneumonia, diffuse and R sided - improving - psa noted in urine last year - with possible pseudomonas will continue cefepime - s/p course of azith - swallow study- no aspiration -complete 10 day course abx COPD with acute exacerbation - transfer to [facility] today, taper over 2 weeks - cont mucinex, flutter valve possible CHF - doubt at this point hypoNa - ULytes c/w hypovolemia - better after NS yesterday; follow allowing her to hydrate herself paroxysmal a-fib - dilt, eliquis HLD - lipitor htn - dilt, cozaar (holding home chlorthalidone while on lasix) # COR - DNR dispo: to SNF today, pending insurance authorization > 30 minutes Subjective: case d/w dr diaz. cxr imprved (interp by me). has bed at [facility] Objective: Vital Signs Temp Pulse Resp BP Pulse Ox 36.6 C 75 14 141/73 H 94 11/08/18 07:31 11/08/18 10:18 11/08/18 10:18 11/08/18 07:31 11/08/18 10:18 Laboratory Results 11/06/18 05:01 11/08/18 04:47 11/07/18 11/08/18 11/09/18 05:59 05:59 05:59 Intake Total 1400 970 Output Total 1800 1275 400 Balance -400 -305 -400 PT 28.6 SEC (12.0-15.0) H 10/31/18 14:15 INR 2.70 (0.83-1.16) H 10/31/18 14:15 - Physical Exam Constitutional: no apparent distress, appears nourished Eyes: PERRL, anicteric sclera Ears, Nose, Mouth, Throat: moist mucous membranes, hearing normal Cardiovascular: regular rate and rhythym, no murmur, rub, or gallop Respiratory: no respiratory distress, other (scattered wheezes/ good air movement/ improved from yesterday) Gastrointestinal: normoactive bowel sounds, soft, non-tender abdomen Genitourinary: no bladder fullness, No messina in urethra Skin: warm, normal color Musculoskeletal: full muscle strength Neurologic: AAOx3 ICD10 Worksheet Patient Problems: Problems Problem Status Onset Exacerbation of asthma Acute Pneumonia Acute Severe sepsis Acute
[2018-11-08] MEDS: TIOTROPIUM INHALER 18 MCG/DOSE 5 DOSE/MDI IH SCH (16:00)
[2018-11-08] MEDS: ATORVASTATIN CALCIUM 10 MG TAB PO SCH (16:13)
--- NOTE | 2018-11-08 16:59 | SOAPPROG ---
SOAP Progress Note Assessment/Plan: Assessment: Right-sided pneumonia, diffuse. Day 9 of antibiotics. Doing well, clinically much improved. Chest x-ray improving. History of asthma: On bronchodilator therapies. Exacerbation is resolving. History restrictive lung disease secondary to a fibrosing mediastinitis, not active Plan: Continue present care. Continue bronchodilator therapy, prednisone on discharge with taper. Continue antibiotics for a total of 10 days, which will be tomorrow. Probable discharge today or tomorrow to SNF: Waiting on insurance approval. I will follow her back in the office 2-3 weeks after discharge. She will need a follow-up chest x-ray at approximately 6 weeks. All the above was discussed with the patient. Subjective: Feels better. Less short of breath. Anxious to move on from the hospital. Objective: Vital Signs Temp Pulse Resp BP Pulse Ox 36.9 C 83 18 123/91 H 93 11/08/18 16:17 11/08/18 16:17 11/08/18 16:17 11/08/18 16:17 11/08/18 16:17 Laboratory Results 11/06/18 05:01 11/08/18 04:47 11/07/18 11/08/18 11/09/18 05:59 05:59 05:59 Intake Total 1400 970 Output Total 1800 1275 400 Balance -400 -305 -400 PT 28.6 SEC (12.0-15.0) H 10/31/18 14:15 INR 2.70 (0.83-1.16) H 10/31/18 14:15 CXR: Improving. Right-sided greater than left-sided infiltrates do persist. Physical Exam - Physical Exam General Appearance: alert, no apparent distress EENT: other (Nasal cannula in place at 2-3 L) Neck: normal inspection (No JVD) Respiratory: decreased breath sounds (Bilaterally), rales (Rales persist on the right.), No lungs clear, No normal breath sounds, No respiratory distress, No rhonchi, No wheezing Cardiac/Chest: regular rate, rhythm, No gallop Abdomen: normal bowel sounds, non-tender, soft Skin: normal color, warm/dry Extremities: pedal edema (Trace) Neuro/Psych: no motor/sensory deficits, No cognition abnormalities ICD10 Worksheet Patient Problems: Problems Problem Status Onset Pneumonia Acute Exacerbation of asthma Acute Severe sepsis Acute
[2018-11-08] MEDS: MELATONIN 3 MG TAB PO PRN (22:06)
[2018-11-08] MEDS: DILTIAZEM CD 180 MG CAP PO SCH (22:07)
[2018-11-09] MEDS: ACETAMINOPHEN 500 MG TAB PO SCH ×3 (05:00→21:34)
[2018-11-09] MEDS: IPRATROPIUM/ALBUTEROL 3 ML DEYVIAL IH SCH ×4 (05:23→21:04)
[2018-11-09] MEDS: traMADol 50 MG TAB PO PRN (08:46)
[2018-11-09] MEDS: LOSARTAN POTASSIUM 50 MG TAB PO SCH (09:07)
[2018-11-09] MEDS: APIXABAN 5 MG TAB PO SCH ×2 (09:07→21:34)
[2018-11-09] MEDS: guaiFENesin 600 MG TAB.ER PO SCH ×2 (09:07→21:34)
[2018-11-09] MEDS: predniSONE 20 MG TAB PO SCH (09:07)
[2018-11-09] MEDS: FLUTICASONE/SALMETER 500/50MCG DISKUS IH SCH ×2 (09:55→21:07)
[2018-11-09] MEDS: TIOTROPIUM INHALER 18 MCG/DOSE 5 DOSE/MDI IH SCH (11:36)
--- NOTE | 2018-11-09 16:32 | ASMTCMCOM ---
CM Note CM Note Notes: SONDRA has been in constant contact with Hodan from [facility] attempting to get updates on insurance auth yesterday and today. Discharge delayed due to waiting for insurance Auth from [place]. SONDRA updated pt. Date Signed: 11/09/2018 04:31 PM Electronically Signed By:FLAKO Mendoza
--- NOTE | 2018-11-09 18:06 | HOSPPROG ---
Hospitalist Progress Note Assessment/Plan: 77 yo F w pneumonia acute hypoxic resp failure - baseline 2L at night; anticoagulated at baseline - slow improvement - multifactorial, possible CHF, pna, COPD exacerbation pneumonia, diffuse and R sided - improving - psa noted in urine last year - with possible pseudomonas will continue cefepime - s/p course of azith - swallow study- no aspiration -completed 10 day course abx COPD with acute exacerbation - transfer to [facility] today, taper over 2 weeks - cont mucinex, flutter valve possible CHF - doubt at this point hypoNa - ULytes c/w hypovolemia - better after NS yesterday; follow allowing her to hydrate herself paroxysmal a-fib - dilt, eliquis HLD - lipitor htn - dilt, cozaar (holding home chlorthalidone while on lasix) # COR - DNR dispo: pending Subjective: awaiting insurance auth. case d/w dr diaz Objective: Vital Signs Temp Pulse Resp BP Pulse Ox 36.8 C 78 17 136/68 H 94 11/09/18 16:00 11/09/18 16:48 11/09/18 16:48 11/09/18 16:00 11/09/18 16:48 Laboratory Results 11/06/18 05:01 11/08/18 04:47 11/08/18 11/09/18 11/10/18 05:59 05:59 05:59 Intake Total 970 580 Output Total 1275 1250 100 Balance -305 -670 -100 PT 28.6 SEC (12.0-15.0) H 10/31/18 14:15 INR 2.70 (0.83-1.16) H 10/31/18 14:15 - Physical Exam Constitutional: no apparent distress, appears nourished Eyes: PERRL, anicteric sclera Ears, Nose, Mouth, Throat: moist mucous membranes, hearing normal Cardiovascular: regular rate and rhythym, no murmur, rub, or gallop Respiratory: no respiratory distress, other (continues to improve. shorter expiratpry phase, better air moveemnt) Gastrointestinal: normoactive bowel sounds, soft, non-tender abdomen Genitourinary: no bladder fullness Skin: warm, normal color Musculoskeletal: full muscle strength Neurologic: AAOx3 ICD10 Worksheet Patient Problems: Problems Problem Status Onset Exacerbation of asthma Acute Pneumonia Acute Severe sepsis Acute
[2018-11-09] MEDS: ATORVASTATIN CALCIUM 10 MG TAB PO SCH (18:11)
[2018-11-09] MEDS: DILTIAZEM CD 180 MG CAP PO SCH (21:34)
[2018-11-09] MEDS: MELATONIN 3 MG TAB PO PRN (21:48)
[2018-11-09] MEDS: CEPACOL LOZENGE PO PRN (21:55)
[2018-11-10] MEDS: traMADol 50 MG TAB PO PRN ×3 (01:46→17:18)
[2018-11-10] MEDS: ACETAMINOPHEN 500 MG TAB PO SCH ×4 (04:59→20:33)
[2018-11-10] MEDS: IPRATROPIUM/ALBUTEROL 3 ML DEYVIAL IH SCH ×4 (05:30→20:40)
[2018-11-10] MEDS: APIXABAN 5 MG TAB PO SCH ×2 (09:12→20:32)
[2018-11-10] MEDS: LOSARTAN POTASSIUM 50 MG TAB PO SCH (09:12)
[2018-11-10] MEDS: guaiFENesin 600 MG TAB.ER PO SCH ×2 (09:12→20:33)
[2018-11-10] MEDS: predniSONE 20 MG TAB PO SCH (09:12)
[2018-11-10] MEDS: FLUTICASONE/SALMETER 500/50MCG DISKUS IH SCH ×2 (09:56→20:40)
[2018-11-10] MEDS: TIOTROPIUM INHALER 18 MCG/DOSE 5 DOSE/MDI IH SCH (11:33)
--- NOTE | 2018-11-10 15:51 | ASMTCMCOM ---
CM Note CM Note Notes: CM spoke with PT, the patient is very eager to discharge to [facility]. CM called and spoke with Hodan with [facility]. She shared she has been calling everyday to [facility] or told to send in a fax auth request. She did speak to a textile machinery sales representative at [facility] who informed her they have up to 2 weeks to make a decision. [facility] will keep CM updated. SONDRA contacted Carin Jackman [facility] to ask if she has a contact to help us connect with [facility] to support patient discharge to SNF. Carin informed CM she spoke with someone at [facility] who could see a request for SNF was made on 11/07/18 and clinical information was received but was unable to see what the delay in decision is because she works in a different department. Carin asked for a phone number to speak with the proper department, the rep informed her everything is done by fax but was given [phone], this is a voice mail only line. SONDRA called Rachelle at [facility], voice mail answered. CM left a message recommending an inquiry be faxed and the voice mail phone number given by [facility] rep. SONDRA called [phone], this line is only used for other [facility]. Dr. Flores inquired on status as patient is medically ready to discharge, SONDRA informed him we are pending auth from health plan and both the facility and [facility] have been attempting to contact [facility] to inquire on status. CM to follow. Discharge plan: SNF when approved Date Signed: 11/10/2018 03:50 PM Electronically Signed By:Kacey Almonte
--- NOTE | 2018-11-10 16:38 | HOSPPROG ---
Hospitalist Progress Note Assessment/Plan: 77 yo F w pneumonia acute hypoxic resp failure - baseline 2L at night; anticoagulated at baseline - improvement - multifactorial, possible CHF, pna, COPD exacerbation pneumonia, diffuse and R sided - improving - psa noted in urine last year - with possible pseudomonas will continue cefepime - s/p course of azith - swallow study- no aspiration -completed 10 day course abx COPD with acute exacerbation - transfer to [facility] today, taper over 2 weeks - cont mucinex, flutter valve possible CHF - doubt at this point hypoNa - ULytes c/w hypovolemia - better after NS yesterday; follow allowing her to hydrate herself paroxysmal a-fib - dilt, eliquis HLD - lipitor htn - dilt, cozaar (holding home chlorthalidone while on lasix) # COR - DNR dispo: pending Subjective: insurance auth not coming. improving Objective: Vital Signs Temp Pulse Resp BP Pulse Ox 36.9 C 79 16 123/65 H 98 11/10/18 15:33 11/10/18 15:33 11/10/18 15:33 11/10/18 15:33 11/10/18 15:33 Laboratory Results 11/06/18 05:01 11/08/18 04:47 11/09/18 11/10/18 11/11/18 05:59 05:59 05:59 Intake Total 580 600 Output Total 1250 100 350 Balance -670 500 -350 PT 28.6 SEC (12.0-15.0) H 10/31/18 14:15 INR 2.70 (0.83-1.16) H 10/31/18 14:15 - Physical Exam Constitutional: no apparent distress, appears nourished Eyes: PERRL, anicteric sclera Ears, Nose, Mouth, Throat: moist mucous membranes, hearing normal Cardiovascular: regular rate and rhythym, no murmur, rub, or gallop Respiratory: no respiratory distress, no rales or rhonchi Gastrointestinal: normoactive bowel sounds, soft, non-tender abdomen Genitourinary: no bladder fullness, No messina in urethra Skin: warm, normal color Musculoskeletal: full muscle strength, no muscle tenderness Neurologic: AAOx3 ICD10 Worksheet Patient Problems: Problems Problem Status Onset Exacerbation of asthma Acute Pneumonia Acute Severe sepsis Acute
[2018-11-10] MEDS: ATORVASTATIN CALCIUM 10 MG TAB PO SCH (17:18)
[2018-11-10] MEDS: CEPACOL LOZENGE PO PRN (20:31)
[2018-11-10] MEDS: DILTIAZEM CD 180 MG CAP PO SCH (20:32)
[2018-11-11] MEDS: ACETAMINOPHEN 500 MG TAB PO SCH ×3 (05:06→20:55)
[2018-11-11] MEDS: IPRATROPIUM/ALBUTEROL 3 ML DEYVIAL IH SCH ×4 (05:13→21:16)
[2018-11-11] MEDS: predniSONE 20 MG TAB PO SCH (08:46)
[2018-11-11] MEDS: traMADol 50 MG TAB PO PRN (08:46)
[2018-11-11] MEDS: LOSARTAN POTASSIUM 50 MG TAB PO SCH (08:47)
[2018-11-11] MEDS: guaiFENesin 600 MG TAB.ER PO SCH ×2 (08:47→20:55)
[2018-11-11] MEDS: APIXABAN 5 MG TAB PO SCH ×2 (08:47→20:55)
[2018-11-11] MEDS: FLUTICASONE/SALMETER 500/50MCG DISKUS IH SCH ×2 (09:50→21:23)
--- NOTE | 2018-11-11 15:11 | HOSPPROG ---
Hospitalist Progress Note Assessment/Plan: 77 yo F w pneumonia acute hypoxic resp failure - baseline 2L at night; anticoagulated at baseline - improvement - multifactorial, possible CHF, pna, COPD exacerbation pneumonia, diffuse and R sided - improving - psa noted in urine last year - with possible pseudomonas will continue cefepime - s/p course of azith - swallow study- no aspiration -completed 10 day course abx COPD with acute exacerbation -decrease pred to 20 - cont mucinex, flutter valve possible CHF - doubt at this point hypoNa - ULytes c/w hypovolemia - better after NS yesterday; follow allowing her to hydrate herself paroxysmal a-fib - dilt, eliquis HLD - lipitor htn - dilt, cozaar (holding home chlorthalidone while on lasix) # COR - DNR dispo: pending Subjective: walked twice today Objective: Vital Signs Temp Pulse Resp BP Pulse Ox 37.1 C 80 14 121/58 H 95 11/11/18 08:00 11/11/18 09:53 11/11/18 09:53 11/11/18 08:47 11/11/18 09:53 Laboratory Results 11/06/18 05:01 11/08/18 04:47 11/10/18 11/11/18 11/12/18 05:59 05:59 06:59 Intake Total 600 800 Output Total 100 500 200 Balance 500 300 -200 PT 28.6 SEC (12.0-15.0) H 10/31/18 14:15 INR 2.70 (0.83-1.16) H 10/31/18 14:15 - Physical Exam Constitutional: no apparent distress, appears nourished Eyes: PERRL Ears, Nose, Mouth, Throat: moist mucous membranes, hearing normal Cardiovascular: regular rate and rhythym, no murmur, rub, or gallop Respiratory: no respiratory distress, no rales or rhonchi Gastrointestinal: normoactive bowel sounds, soft, non-tender abdomen Genitourinary: No messina in urethra Skin: warm, normal color Musculoskeletal: No full muscle strength Neurologic: AAOx3 ICD10 Worksheet Patient Problems: Problems Problem Status Onset Exacerbation of asthma Acute Pneumonia Acute Severe sepsis Acute
[2018-11-11] MEDS: TIOTROPIUM INHALER 18 MCG/DOSE 5 DOSE/MDI IH SCH (15:31)
[2018-11-11] MEDS ORDERED: FUROSEMIDE 20 MG/2 ML VIAL IVP ONE (15:37)
--- NOTE | 2018-11-11 15:39 | SOAPPROG ---
SOAP Progress Note Assessment/Plan: Assessment: Right-sided pneumonia, diffuse. Completed 10 days of antibiotics. Doing well, clinically much improved. Pulmonary status close to baseline at this point. Chest x-ray improving. History of asthma: On bronchodilator therapies. Exacerbation is resolving. 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 Disposition: Transfer to SNF requested 5 days ago. There is been no response from her insurance company by report regarding authorization for patient admit to [facility] - unclear why. This has been quite upsetting to the patient and seems unacceptable. As she improves awaiting discharge she may be able to simply go home with home care. Plan: Continue present care. Continue bronchodilator therapy, prednisone on discharge with taper. Follow-up chest x-ray on Tuesday, two view. I will follow her back in the office 2-3 weeks after discharge. She will need a follow -up chest x-ray at approximately 6 weeks. Subjective: Breathing is better. Upset regarding lack of progress in discharge to SNF. Objective: Vital Signs Temp Pulse Resp BP Pulse Ox 37.1 C 84 16 124/66 H 94 11/11/18 15:15 11/11/18 15:15 11/11/18 15:15 11/11/18 15:15 11/11/18 15:15 Laboratory Results 11/06/18 05:01 11/08/18 04:47 11/10/18 11/11/18 11/12/18 05:59 05:59 06:59 Intake Total 600 800 Output Total 100 500 200 Balance 500 300 -200 PT 28.6 SEC (12.0-15.0) H 10/31/18 14:15 INR 2.70 (0.83-1.16) H 10/31/18 14:15 Physical Exam - Physical Exam General Appearance: alert, no apparent distress EENT: PERRL/EOMI, other (Nasal cannula in place at 2 L) Neck: normal inspection Respiratory: lungs clear (A anteriorly), decreased breath sounds (At bases), rales (Few rales at right base), No rhonchi, No wheezing Cardiac/Chest: regular rate, rhythm Abdomen: normal bowel sounds, non-tender, soft Skin: normal color, warm/dry Extremities: pedal edema (2+) Neuro/Psych: no motor/sensory deficits, No cognition abnormalities ICD10 Worksheet Patient Problems: Problems Problem Status Onset Pneumonia Acute Exacerbation of asthma Acute Severe sepsis Acute
[2018-11-11] MEDS ORDERED: CHLORTHALIDONE 25 MG TAB PO SCH (15:45)
[2018-11-11] MEDS: ATORVASTATIN CALCIUM 10 MG TAB PO SCH (17:42)
[2018-11-11] MEDS: DILTIAZEM CD 180 MG CAP PO SCH (20:55)
[2018-11-12] MEDS: IPRATROPIUM/ALBUTEROL 3 ML DEYVIAL IH SCH ×4 (05:18→20:52)
[2018-11-12] MEDS: ACETAMINOPHEN 500 MG TAB PO SCH ×3 (05:30→22:12)
[2018-11-12] MEDS ORDERED: CHLORTHALIDONE 25 MG TAB PO SCH (08:00)
--- NOTE | 2018-11-12 09:23 | HOSPPROG ---
Hospitalist Progress Note Assessment/Plan: Patient is a 77-year-old female with past medical history of AFib on Eliquis, asthma, chronic bronchitis, hypertension, hyperlipidemia who presented to the emergency room with acute worsening of shortness of breath and productive cough. It was noted she had pneumonia. First encounter, chart revewed. 77 yo F w pneumonia *acute hypoxic resp failure -at baseline uses 2 liters at night -multifactorial, poss CHF, pna and COPD exacerbation *pneumonia, diffuse and R sided -received 10 day course of antibiotic -no aspiration per swallow study *COPD with acute exacerbation -prednisone 20 mg daily -Mucinex, flutter valve *possible CHF - -no s/sx *hypoNa -mild *paroxysmal a-fib - diltiazem, Eliquis -in sinus during my evaluation *HLD - Lipitor *htn - dilt, Cozaar, chlorthalidone *plan: to go to [facility] pending insurance approval, therapies recommending SNF Subjective: Pam is feeling much better overall. Objective: Vital Signs Temp Pulse Resp BP Pulse Ox 37.0 C 77 18 138/55 H 95 11/12/18 08:00 11/12/18 08:00 11/12/18 08:00 11/12/18 08:00 11/12/18 08:00 Laboratory Results 11/06/18 05:01 11/08/18 04:47 11/11/18 11/12/18 11/13/18 04:59 05:59 05:59 Intake Total Output Total 200 Balance -200 PT 28.6 SEC (12.0-15.0) H 10/31/18 14:15 INR 2.70 (0.83-1.16) H 10/31/18 14:15 - Physical Exam Constitutional: no apparent distress, appears nourished, not in pain Eyes: PERRL Ears, Nose, Mouth, Throat: hearing normal Cardiovascular: regular rate and rhythym Respiratory: no respiratory distress, reduced air movement (bases) Gastrointestinal: normoactive bowel sounds Skin: warm Neurologic: AAOx3 Psychiatric: interacting appropriately ICD10 Worksheet Patient Problems: Problems Problem Status Onset Exacerbation of asthma Acute Pneumonia Acute Severe sepsis Acute
[2018-11-12] MEDS: CHLORTHALIDONE 25 MG TAB PO SCH (09:26)
[2018-11-12] MEDS: LOSARTAN POTASSIUM 50 MG TAB PO SCH (09:26)
[2018-11-12] MEDS: predniSONE 20 MG TAB PO SCH (09:26)
[2018-11-12] MEDS: APIXABAN 5 MG TAB PO SCH ×2 (09:26→22:13)
[2018-11-12] MEDS: guaiFENesin 600 MG TAB.ER PO SCH ×2 (09:27→22:13)
[2018-11-12] MEDS: FLUTICASONE/SALMETER 500/50MCG DISKUS IH SCH ×2 (10:22→20:53)
[2018-11-12] MEDS: TIOTROPIUM INHALER 18 MCG/DOSE 5 DOSE/MDI IH SCH (15:21)
--- NOTE | 2018-11-12 15:29 | SOAPPROG ---
SOAP Progress Note Assessment/Plan: Assessment: Right-sided pneumonia, diffuse. Completed 10 days of antibiotics. Doing well, clinically much improved. Pulmonary status close to baseline at this point. Chest x-ray improving. On 2 L. She was using 2 L at night, none during the day. She is close to this. History of asthma: On bronchodilator therapies. Exacerbation is resolving. 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 Disposition: Transfer to SNF requested 5 days ago. There is been no response from her insurance company by report regarding authorization for patient admit to [facility] - unclear why. This has been quite upsetting to the patient and seems unacceptable. As she has improved awaiting discharge she may be able to simply go home with home care. Plan: Continue present care. Continue bronchodilator therapy, prednisone on discharge with taper. Follow-up chest x-ray on Tuesday, two view. I will follow her back in the office 2-3 weeks after discharge. She will need a follow -up chest x-ray at approximately 6-8 weeks post discharge. I have asked for PT and OT to reassess her for discharge to home tomorrow. This may be possible as she has continued to improve over the last number of days as she has awaited SNF placement. Subjective: Feels better. Up in chair. No cough or mucus, no chest pain. Ankles remains swollen. Objective: Vital Signs Temp Pulse Resp BP Pulse Ox 37.0 C 85 14 138/55 H 97 11/12/18 08:00 11/12/18 10:26 11/12/18 10:26 11/12/18 09:26 11/12/18 10:26 Laboratory Results 11/06/18 05:01 11/08/18 04:47 11/11/18 11/12/18 11/13/18 04:59 05:59 05:59 Intake Total Output Total 200 Balance -200 PT 28.6 SEC (12.0-15.0) H 10/31/18 14:15 INR 2.70 (0.83-1.16) H 10/31/18 14:15 Physical Exam - Physical Exam General Appearance: alert, no apparent distress EENT: other (Nasal cannula in place at 2 L. Ambulated with 2 L) Neck: normal inspection Respiratory: decreased breath sounds (Bilaterally), rales (Rales present at right base, improved), No rhonchi, No wheezing Cardiac/Chest: regular rate, rhythm, No gallop Abdomen: normal bowel sounds, non-tender, soft Skin: normal color, warm/dry Extremities: pedal edema (1++) Neuro/Psych: no motor/sensory deficits, No cognition abnormalities ICD10 Worksheet Patient Problems: Problems Problem Status Onset Exacerbation of asthma Acute Pneumonia Acute Severe sepsis Acute
[2018-11-12] MEDS ORDERED: BISACODYL 10 MG SUPP PR PRN (16:36)
[2018-11-12] MEDS ORDERED: MAGNESIUM HYDROXIDE 30 ML UDCUP PO PRN (16:36)
[2018-11-12] MEDS ORDERED: LACTULOSE 20 GM/30 ML UDCUP PO PRN (16:36)
[2018-11-12] MEDS: POLYETHYLENE GLYCOL 3350 17 GM PKT PO SCH (16:46)
[2018-11-12] MEDS: ATORVASTATIN CALCIUM 10 MG TAB PO SCH (18:03)
[2018-11-12] MEDS: CEPACOL LOZENGE PO PRN (19:42)
[2018-11-12] MEDS: DILTIAZEM CD 180 MG CAP PO SCH (22:12)
[2018-11-12] MEDS: SENNOSIDES/DOCUSATE SODIUM TAB PO SCH (22:13)
[2018-11-13] MEDS: IPRATROPIUM/ALBUTEROL 3 ML DEYVIAL IH SCH ×2 (05:32→10:45)
[2018-11-13] MEDS: ACETAMINOPHEN 500 MG TAB PO SCH (05:43)
[2018-11-13 08:18] VITALS: BP 139/72
[2018-11-13] MEDS: guaiFENesin 600 MG TAB.ER PO SCH (09:14)
[2018-11-13] MEDS: predniSONE 20 MG TAB PO SCH (09:14)
[2018-11-13] MEDS: CHLORTHALIDONE 25 MG TAB PO SCH (09:14)
[2018-11-13] MEDS: LOSARTAN POTASSIUM 50 MG TAB PO SCH (09:15)
[2018-11-13] MEDS: SENNOSIDES/DOCUSATE SODIUM TAB PO SCH (09:15)
[2018-11-13] MEDS: POLYETHYLENE GLYCOL 3350 17 GM PKT PO SCH (09:15)
[2018-11-13] MEDS: APIXABAN 5 MG TAB PO SCH (09:15)
[2018-11-13] MEDS: FLUTICASONE/SALMETER 500/50MCG DISKUS IH SCH (10:45)
--- NOTE | 2018-11-13 11:44 | PDIAF ---
- Diagnosis Diagnosis: pna Code Status: Do Not Resuscitate - Medication Management Discharge Medications: electronically signed and located in the Home Medication List. PICC Care - Routine: N/A - Orders Services needed: Home Care, Registered Nurse, Physical Therapy, Occupational Therapy Home Care Face to Face: I certify that this patient was under my care and that I had the required [id number] encounter meeting the encounter requirements on the discharge day. My findings support the fact that the patient is homebound as defined in Home Care Face to Face Continued: CMS Chapter 7 Medicare Benefits Manual 30.1.1 , The condition of the patient is such that there exists a normal inability to leave home and consequently, leaving home would require a considerable and taxing effort. Isolation Type: None Diet Recommendation: no restrictions on diet Diet Texture: Regular Texture Diet, Thin Liquids - Follow Up Care Current Providers and Referrals: Patient,NotPresent [Unknown] - As per Instructions Luis Jane MD [Medical Doctor] -
--- NOTE | 2018-11-13 11:44 | PDHOMEO2F ---
Home Oxygen Face to Face Home Orders: I certify that a physician or a nurse practitioner or physician's assistant men's soccer coach has had a [id number] encounter with this patient on the date of this order due to the diagnosis listed, which relates to the primary reason the patient requires home oxygen. Alternative treatments have been tried, or considered, and deemed ineffective. It is anticipated that supplemental oxygen will result in improvement with treatment. Home oxygen qualifying diagnosis: copd SpO2 on room air (%): 86 Frequency of home oxygen needed: continuous Home oxygen liters per minute: 2 Home oxygen delivery device: nasal cannula Concentrator: Yes E-tanks for mobility and back up: Yes If ordering portable O2, is the patient mobile in the home?: Yes I certify that, based on these findings, the home oxygen is medically necessary for this patient for the following length of time. Length of time home oxygen needed: 3 months
--- NOTE | 2018-11-13 11:45 | SOAPPROG ---
SOAP Progress Note Assessment/Plan: Assessment: Right-sided pneumonia, diffuse. Completed 10 days of antibiotics. Doing well, clinically much improved. Pulmonary status close to baseline at this point. Chest x-ray improved, will repeat today. On 2 L O2. She was using 2 L at night , none during the day. She seems close to this. History of asthma: On bronchodilator therapies. Exacerbation is resolving. 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 Disposition: Transfer to SNF requested 5 days ago. There is been no response from her insurance company by report regarding authorization for patient admit to [facility] - unclear why. This has been quite upsetting to the patient and seems unacceptable. As she has improved awaiting discharge will likely be able to simply go home with home care. Plan: For likely discharge home today. Two-view chest x-ray before she goes ordered. Continue bronchodilator therapy and slow prednisone taper at home. Continue chlorthalidone and other medications. Follow-up with me in the office next week. Subjective: Still here, feels okay. Objective: Vital Signs Temp Pulse Resp BP Pulse Ox 37.1 C 78 18 139/72 H 97 11/13/18 08:00 11/13/18 10:45 11/13/18 10:45 11/13/18 09:15 11/13/18 10:45 Laboratory Results 11/06/18 05:01 11/08/18 04:47 11/12/18 11/13/18 11/14/18 05:59 05:59 05:59 Intake Total 240 Output Total 1400 200 Balance -1160 -200 PT 28.6 SEC (12.0-15.0) H 10/31/18 14:15 INR 2.70 (0.83-1.16) H 10/31/18 14:15 Physical Exam - Physical Exam General Appearance: alert, no apparent distress, other (Up in chair) EENT: other (Oxygen in place at 2 L with sats 97-100% at rest.) Neck: normal inspection Respiratory: decreased breath sounds (Excursions are better, essentially normal for her), rales (Rales present at the right base with increased air movement there.), No rhonchi, No wheezing Cardiac/Chest: regular rate, rhythm Abdomen: normal bowel sounds, non-tender, soft Skin: normal color, warm/dry Extremities: pedal edema (1+) Neuro/Psych: no motor/sensory deficits, No cognition abnormalities ICD10 Worksheet Patient Problems: Problems Problem Status Onset Pneumonia Acute Exacerbation of asthma Acute Severe sepsis Acute
--- NOTE | 2018-11-13 11:52 | ASMTCMCOM ---
CM Note CM Note Notes: Spoke to an actual person at [facility] for SNF authorization which was submitted last Tuesday. They confirmed receipt of request for auth and reiterated that they have 14 days to respond and it is still in process. Pt is becoming irritated with the wait and though therapies are still recommending discharge to SNF for safety pt is unwilling to stay in the hospital any longer and would like to discharge home with HHC. [facility] has been arranged. Order placed for O2 tank to travel home. Dtr informed and in agreement. CM to follow. Date Signed: 11/13/2018 11:51 AM Electronically Signed By:Nadiya Christensen
--- NOTE | 2018-11-13 14:31 | ASMTDCNOTE ---
Case Management Discharge Discharge Order Complete? Answers: Yes Patient to Obtain Answers: via Family Medications Transportation Arranged Answers: Family/Friends Transport will Pick (Date 11/13/2018 12:00 AM & Time) Faxed Final Orders Answers: Yes Agency/Facility Transfer Answers: Yes Report Printed & Faxed to Receiving Agency Family Notified Answers: Yes Notes: called by CM, no answer; pt was able to contact Discharge Comments Notes: Pt to discharge today with support from [facility] PT/OT/RN. Final authorization for [facility] from [place] came at 13:00, but pt had already arranged for HHC and home O2 and leaf size picker by daughter. Home O2 to be delivered by 15:30, however pt's daughter unable to provide transport after 14:30. Pt stated she has O2 unit at home and will just travel by car without tank O2 and deal with the O2 company at a later date. Pt was comfortable going home with no O2 as distance is not far. No further CM needs noted at this time. Date Signed: 11/13/2018 02:30 PM Electronically Signed By:Nadiya Christensen
--- NOTE | 2018-11-13 14:33 | ASMTLACE ---
LACE Length of stay for Answers: 7-13 days current admission Acuity / Level of Answers: Yes Care: Did the patient have an inpatient admission? Comorbidities - select Answers: Chronic pulmonary disease all that apply Other Notes: AFib; HTN; HLD # of Emergency department Answers: 1-2 visits in the last 6 months Score: 12 Date Signed: 11/13/2018 02:32 PM Electronically Signed By:Nadiya Christensen
--- NOTE | 2018-11-13 14:36 | ASDISCHSUM ---
Discharge Information Plan Status:Home with Home Health Medically Cleared to Leave:11/13/2018 Discharge Date:11/13/2018 CM D/C Disposition:Home Health Service ADT D/C Disposition:Home Health Service Projected Discharge Date:11/07/2018 11:00 AM Transportation at D/C:Family Discharge Delay Reason: Follow-Up Date:11/07/2018 11:00 AM Discharge Slot: Final Diagnosis:PNA Placement Information Referral Type:*Home Health Care Services Referral ID:[id number] Provider Name:[facility] [address] [address] Address 2: City:[place] Selection Factors: State:[place] Referral Type:*Half-Way/SNF Referral ID:[id number] Provider Name: Address 1: Phone Number: Address 2: Fax Number: City: Selection Factors: State: Patient Contact Information Contact Name:AXEL Relationship:Daughter Address:[address] City:[place] Alternate Phone: State/Zip Code:[place] [address] Email: Financial Information Financial Class:Medicare Advantage Plans Primary Plan Desc:FERMIN MEDICARE ADV Primary Plan Number:[id number] Secondary Plan Desc: Secondary Plan Number: Assessment Information LACE LACE Length of stay for Answers: 7-13 days current admission Acuity / Level of Answers: Yes Care: Did the patient have an inpatient admission? Comorbidities - select Answers: Chronic pulmonary disease all that apply Other Notes: AFib; HTN; HLD # of Emergency department Answers: 1-2 visits in the last 6 months Score: 12 Date Signed: 11/13/2018 02:32 PM Electronically Signed By:Nadiya Christensen [facility] CM Progress Note CM Note CM Note Notes: Pts case discussed w/ Dr. Abarca. Pt is a 77 y/o female admitted for pneumonia and asthma exacerbation. Therapies have been ordered and awaiting recommendations. Needs are TBD at this time. CM to follow. Plan:TBD Date Signed: 11/01/2018 11:33 AM Electronically Signed By:FLAKO Heaton [facility] SONDRA Progress Note CM Note CM Note Notes: Pts case discussed w/ Casandra Cespedes NP. Therapies are recommending HC. CM met w/ pt for dispo planning. She is agreeable to having [facility] services. Referral sent and they are able to accept. CM confirmed pts address and phone number. Pts PCP is Dr. Kerr. Pt is requesting [employer] Whe[employer] set up for 5 days. CM will assist in doing that once a d/c date is identified. Pt does not have any food restrictions. CM to follow. Plan: [facility], PT, OT Date Signed: 11/02/2018 12:27 PM Electronically Signed By:FLAKO Heaton [facility] SONDRA Progress Note CM Note CM Note Notes: CM spoke to Dr. Ayala about this case. Pt will most likely be here for another day or two. CM arranged for pt to start receiving [employer] Whe[employer] on Tuesday. That was the soonest availability they had. CM updated [facility]. CM to follow. Plan: [facility]; PT, OT Date Signed: 11/03/2018 04:30 PM Electronically Signed By:FLAKO Heaton [facility] CM Progress Note CM Note CM Note Notes: Pts case discussed w/ Dr. Ayala and JORDAN Isaac. Pt is not medically stable to d/c at this time. CM left a msg for [employer] to reschedule delivery to start on . CM to follow. Plan: [facility]; PT, OT w/ 5 free Meals On Wheels Date Signed: 11/06/2018 03:10 PM Electronically Signed By:FLAKO Heaton [facility] CM Progress Note CM Note CM Note Notes: Pt now wants to discharge to [facility] and they have accepted, pending insurance authorization. Per hospitalist, pt needs another night to be medically stable for discharge. Pt and daughter aware. D/c Plan: [place] pending insurance authorization. Date Signed: 11/07/2018 04:28 PM Electronically Signed By:Nadiya Christensen [facility] CM Progress Note CM Note CM Note Notes: SONDRA has been in constant contact with Hodan from [facility] attempting to get updates on insurance auth yesterday and today. Discharge delayed due to waiting for insurance Auth from [facility]. SONDRA updated pt. Date Signed: 11/09/2018 04:31 PM Electronically Signed By:FLAKO Mendoza [facility] Progress Note CM Note CM Note Notes: SONDRA spoke with PT, the patient is very eager to discharge to [facility]. SONDRA called and spoke with Hodan with [facility]. She shared she has been calling everyday to [facility] while being transferred to [facility] or told to send in a fax auth request. She did speak to a distribution sales representative at [facility] who informed her they have up to 2 weeks to make a decision. Hodan will keep SONDRA updated. SONDRA contacted Carin Jackman [facility] to ask if she has a contact to help us connect with [facility] to support patient discharge to SNF. Carin informed SONDRA she spoke with someone at [facility] who could see a request for SNF was made on 11/07/18 and clinical information was received but was unable to see what the delay in decision is because she works in a different department. Carin asked for a phone number to speak with the proper department, the rep informed her everything is done by fax but was given [phone], this is a voice mail only line. SONDRA called Rachelle at [facility], voice mail answered. SONDRA left a message recommending an inquiry be faxed and the voice mail phone number given by [facility]. SONDRA called [phone], this line is only used for other [facility]. Dr. Flores inquired on status as patient is medically ready to discharge, SONDRA informed him we are pending auth from health plan and both the facility and [facility] have been attempting to contact [facility] to inquire on status. CM to follow. Discharge plan: SNF when approved Date Signed: 11/10/2018 03:50 PM Electronically Signed By:Kacey Almonte [facility] CM Progress Note CM Note CM Note Notes: Spoke to an actual person at [facility] today for SNF authorization which was submitted last Tuesday. They confirmed receipt of request for auth and reiterated that they have 14 days to respond and it is still in process. Pt is becoming irritated with the wait and though therapies are still recommending discharge to SNF for safety pt is unwilling to stay in the hospital any longer and would like to discharge home with [facility]. [facility] has been arranged. Order placed for O2 tank to travel home. Dtr informed and in agreement. CM to follow. Date Signed: 11/13/2018 11:51 AM Electronically Signed By:Nadiya Christensen Case Management Discharge Plan Note Case Management Discharge Discharge Order Complete? Answers: Yes Patient to Obtain Answers: via Family Medications Transportation Arranged Answers: Family/Friends Transport will Pick (Date 11/13/2018 12:00 AM & Time) Faxed Final Orders Answers: Yes Agency/Facility Transfer Answers: Yes Report Printed & Faxed to Receiving Agency Family Notified Answers: Yes Notes: called by CM, no answer; pt was able to contact Discharge Comments Notes: Pt to discharge today with support from [facility] PT/OT/RN. Final authorization for [facility] from [facility] came at 13:00, but pt had already arranged for HHC and home O2 and olive picker by daughter. Home O2 to be delivered by 15:30, however pt's daughter unable to provide transport after 14:30. Pt stated she has O2 unit at home and will just travel by car without tank O2 and deal with the O2 company at a later date. Pt was comfortable going home with no O2 as distance is not far. No further CM needs noted at this time. Date Signed: 11/13/2018 02:30 PM Electronically Signed By:Nadiya Christensen Intervention Information Intervention Type:*IM-Signed Date of Service:11/03/2018 02:58 PM Patient Type:Inpatient Staff Member:Viridiana Nielsno Hours: Discipline: Severity: Comment: Intervention Type:*IM-Signed Date of Service:11/13/2018 11:38 AM Patient Type:Inpatient Staff Member:Lulú Gonsalves Hours: Discipline: Severity: Comment:
--- NOTE | 2018-11-13 15:13 | GDS ---
[f rep st] DISCHARGE SUMMARY DISCHARGE DIAGNOSES: 1. Right-sided pneumonia. 2. History of asthma. 3. History of reactive lung disease. 4. Acute hypoxemic respiratory failure. 5. Hyponatremia. 6. Paroxysmal atrial fibrillation. 7. Hypertension. CONSULTATIONS: Pulmonology. STUDIES AND PROCEDURES: 1. Echocardiogram. 2. CT of the chest. 3. Video esophagram. PHYSICAL EXAM: GENERAL: The patient is alert. VITAL SIGNS: Afebrile at 37.1, pulse 78, respirator y rate is 18, blood pressure 139/72. She is saturating 97% on 2 L. I have seen and evaluated the kameron gaviria on the day of discharge. HOSPITAL COURSE: Patient is a 77-year-old female who presented the hospital with complaints of short ness of breath. She was evaluated and diagnosed with: 1. Acute hypoxemic respiratory failure. The patient uses 2 liters of oxygen at night for baseline o xygen therapy. Her acute hypoxemic respiratory failure is multifactorial and requires supplemental h ome oxygen at the time of disposition. 2. Pneumonia. She has received 10 day course of antibiotic therapy, as well as a consultation from Pulmonology. Video swallow was also evaluated with no signs of aspiration. This is considered treat ed at the time of disposition. 3. COPD with acute exacerbation. Steroids are being continued at the time of disposition, as well a s nebulizer treatment. She will follow up with Dr. Luis Jane in the outpatient setting in a week. 4. Hyponatremia. This is stable. 5. Paroxysmal atrial fibrillation. Her regular home medications have been continued. 6. Hypertension. This is stable on medications. DISPOSITION: The patient will be discharged home with home health care. PENDING STUDIES: There are no pending studies. DISCHARGE MEDICATIONS: New medications, include prednisone. FOLLOWUP: Followup will be with her primary care physician, as well as Dr. Luis Jane. I spent greater than 35 minutes in the care, coordination, and management of the patient's dispositio n. /[id number]/MODL
== END 2018-11-13 14:35 | disposition home health service (06) | DRG 193 ==
LOC: EDUNIT# → F3E 16:54 → OBSVTOIN 11-01 14:11
PROVIDERS: ADMIT Internal Medicine; ATTEND Internal Medicine
DX: J18.8 Other pneumonia, unspecified organism (principal); J96.01 Acute respiratory failure with hypoxia; E87.1 Hypo-osmolality and hyponatremia; J44.1 Chronic obstructive pulmonary disease with (acute) exacerbation; J44.0 Chronic obstructive pulmonary disease with (acute) lower respiratory infection; J45.901 Unspecified asthma with (acute) exacerbation; I48.0 Paroxysmal atrial fibrillation; I10 Essential (primary) hypertension; E78.5 Hyperlipidemia, unspecified; Z66 Do not resuscitate; Z87.891 Personal history of nicotine dependence
CPT/HCPCS: 87449-90; 92610-GN; 92611-GN; 96365; 96366; 97110-GP; 97116-GP; 97161-GP; 97165-GO; 97530-GO; 97530-GP; 97535-GO; G0378; J0456; J0692; J0696; J1940; J2930; J3475; J7512; J7613; Q9967

== ENCOUNTER → 2019-02-19 | Outpatient (CLI) | payer OTHER | LOC: FIMAGING 09:17 ==